=== PATIENT | male | born 1985 | race African-American/Black ===

== ENCOUNTER 2023-04-12 22:28 | Emergency (ER) | payer MEDICAID, OTHER, SELFPAY ==
--- NOTE | 2023-04-12 | ECG_ITS ---
Test Reason : CHEST PAIN Blood Pressure : / mmHG Vent. Rate : 071 BPM Atrial Rate : 071 BPM P-R Int : 184 ms QRS Dur : 096 ms QT Int : 376 ms P-R-T Axes : 052 011 018 degrees QTc Int : 408 ms Normal sinus rhythm Normal ECG No previous ECGs available Referred By: Generic ED Physician Electronically Signed By:HEIDI TAYLOR MD
--- NOTE | ~2023-04-12 | XR_ITS ---
EXAMINATION: XR CHEST CLINICAL INFORMATION: Chest pain. COMPARISON: None available. TECHNIQUE: PA view of the chest was obtained. FINDINGS: Low lung volumes with mild bronchovascular crowding. No focal airspace opacity, pleural effusion or pneumothorax. Normal appearance of the cardiomediastinal silhouette. No acute osseous findings. Visualized upper abdomen is within normal limits. XR/XR chest 1V IMPRESSION: Low lung volumes with bronchovascular crowding. No focal airspace opacity. No pleural effusion or pneumothorax.
[2023-04-12 22:45] VITALS: BP 136/84; PULSE 74; RESP 16; TEMP 36.7; O2SAT 99; BMI 40.8
[2023-04-12 22:48] LABS: MANUAL DIFF FLAG NO
[2023-04-12 22:49] LABS: Basophils Percent Auto 0.4 % (0-2); Eosinophils Absolute Auto 0.6 X10*3/uL (0.0-0.4); Eosinophils Percent Auto 5.9 % (0-4); Hematocrit 38.9 % (42.0-52.0); Hemoglobin 12.5 g/dl (14.0-18.0); Imm Gran Abs Auto 0.02 X10*3/uL (0.00-0.03); Imm Gran Pct Auto 0.2 % (0.0-0.4); Lymphocytes Absolute Auto 2.9 X10*3/uL (1.2-4.9); Mean Corpuscular HGB Conc 32.1 g/dl (31.0-36.0); Mean Corpuscular Hemoglobin 25.1 pg (27.0-33.0); Mean Platelet Volume 10.5 fL (9.4-12.4); Monocytes Absolute Auto 0.6 X10*3/uL (0.1-1.2); Monocytes Percent Auto 5.9 % (2-11); Neutrophils Absolute Auto 5.9 x10*3/uL (2.0-8.3); Neutrophils Percent Auto 58.6 % (45-73); Platelet Count 238 X10*3/uL (160-400); Red Blood Count 4.99 X10*6/uL (4.60-5.80)
[2023-04-12 23:04] LABS: Alanine Aminotransferase 16 U/L (0-40); Albumin Level 4.2 g/dL (3.5-5.0); Alkaline Phosphatase 77 U/L (39-117); Anion Gap 12 (12-20); Aspartate Amino Transferase 16 U/L (5-37); Bilirubin Total 0.2 mg/dL (0.0-1.0); Blood Urea Nitrogen 15 mg/dL (9-16); Calcium 9.1 mg/dL (8.4-10.2); Carbon Dioxide 25 mmol/L (22-29); Chloride 108 mmol/L (96-108); Creatinine Clr Calc Pharmacy 152.7; Estimated Glomerular Filt Rate > 60; Glucose Random 170 mg/dL (60-115); Potassium 3.7 mmol/L (3.3-5.1); Sodium 141 mmol/L (135-145); Total Protein 7.5 g/dL (6.5-8.0)
[2023-04-12 23:12] LABS: Troponin-I High Sensitivity < 2.7 ng/L (<3.5-35.0)
--- NOTE | 2023-04-13 00:40 | ED.CHESTPAIN ---
HPI - Chest Pain General Chief Complaint: Chest Pain Stated Complaint: chest pain Time Seen by Provider: 04/12/23 23:26 History of Present Illness HPI narrative: patient is a 37-year-old male presents today with having chest pain that is pinpoint it has been steady for the last 3 days not associated with shortness of breath no diaphoresis no history of blood clots in the past. No traveling history. Patient denies any trauma. No history of puncture lungs. Patient from home. Has a history of hypertension. No history of high cholesterol. No history of [place]. No history of diabetes. Related Data Allergies Allergy/AdvReac Type Severity Reaction Status Date / Time No Known Allergies Allergy Verified 04/12/23 22:45 Review of Systems Review of Systems: positive chest pain Yes all other systems are reviewed and are negative PMFSH Past Medical History Attestation statement: The following information was validated with the patient. Social History Social History Advance Directives: No Advance Directives Information Provided: No Physical Exam Vital Signs: Vital Signs: Last Vital Signs Temp 98.0 F 04/12/23 22:45 Pulse 74 04/12/23 22:45 Resp 16 04/12/23 22:45 BP 136/84 04/12/23 22:45 Pulse Ox 99 04/12/23 22:45 O2 Del Method Room Air 04/12/23 22:45 BMI result Body Mass Index 40.8 Appearance: Alert. Oriented X3. No acute distress. Eyes: Pupils equal, round and reactive to light. ENT: Pharynx normal. Neck: Normal inspection. Neck supple. No lymph nodes noted. No crepitus CVS: Normal heart rate and rhythm. Pulses normal. Normal S1 and S2 Respiratory: No respiratory distress. Breath sounds normal. No Wheezing. No rales Abdomen: Soft and nontender. No rigidity. No distention. good BS x4 Skin: Skin warm and dry. Normal skin color. Normal skin turgor. Extremities: No lower extremity edema. Neurovascular intact to all extremities. No Lacerations. No Rash Neuro: Oriented X 3. No motor deficit. No sensory deficit. Moving all extermities. No slurred speech Medical Decision Making Medical Decision Making MDM Narrative: My interpretation of patient's EKG showed a sinus rhythm heart rate is 70 OH QRS QTC within normal limits is no acute ST segment elevation. Patient history not consistent with ACS. Troponin is negative. He is 37 years old. He is not overweight. Question family history. his heart score still less than 3. Chest x-ray negative. There is no evidence of pneumonia pneumothorax. Patient is in stable condition. Will discharge home. Differential Diagnosis Differential Diagnoses: The differential diagnosis associated with the presentation includes Admission/Observation Consider admission but patient's heart score less than 3 well appearing joint decision was made to discharge patient Lab Data MDM Lab Attestation statement: I reviewed the patient's lab results. 04/12/23 22:44 04/12/23 22:44 Labs: Lab Results 04/12/23 Range/Units 22:44 WBC 10.0 (4.8-10.8) X10*3/uL RBC 4.99 (4.60-5.80) X10*6/uL Hgb 12.5 L (14.0-18.0) g/dl Hct 38.9 L (42.0-52.0) % MCV 78.0 L (80.0-98.0) fL MCH 25.1 L (27.0-33.0) pg MCHC 32.1 (31.0-36.0) g/dl RDW 14.0 (11.0-16.0) % Plt Count 238 (160-400) X10*3/uL MPV 10.5 (9.4-12.4) fL Immature Gran % (Auto) 0.2 (0.0-0.4) % Neut % (Auto) 58.6 (45-73) % Lymph % (Auto) 29.0 (20-40) % [place] % (Auto) 5.9 (2-11) % Eos % (Auto) 5.9 H (0-4) % Baso % (Auto) 0.4 (0-2) % Lymph # (Auto) 2.9 (1.2-4.9) X10*3/uL [place] # (Auto) 0.6 (0.1-1.2) X10*3/uL Eos # (Auto) 0.6 H (0.0-0.4) X10*3/uL Baso # (Auto) 0.0 (0.0-0.2) X10*3/uL Abs Immat Gran (auto) 0.02 (0.00-0.03) X10*3/uL Absolute Neuts (auto) 5.9 (2.0-8.3) x10*3/uL Absolute Nucleated RBC 0.000 (0.0-0.012) X10*3/uL Nucleated RBC % (auto) 0.0 (0.0-0.2) /100WBC Sodium 141 (135-145) mmol/L Potassium 3.7 (3.3-5.1) mmol/L Chloride 108 (96-108) mmol/L Carbon Dioxide 25 (22-29) mmol/L Anion Gap 12 (12-20) BUN 15 (9-16) mg/dL Creatinine 0.85 (0.5-1.4) mg/dL Estim Creat Clear Calc 152.7 Estimated GFR > 60 Random Glucose 170 H (60-115) mg/dL Calcium 9.1 (8.4-10.2) mg/dL Total Bilirubin 0.2 (0.0-1.0) mg/dL AST 16 (5-37) U/L ALT 16 (0-40) U/L Alkaline Phosphatase 77 (39-117) U/L Troponin I High Sens < 2.7 (<3.5-35.0) ng/L Total Protein 7.5 (6.5-8.0) g/dL Albumin 4.2 (3.5-5.0) g/dL Independent Interpretation I performed an independent interpretation of an: EKG ( Sinus heart rate is 80 OH QRS QTC within normal limits there is no acute ST segment elevation.) and Plain X-Ray ( Chest x-ray showed no pneumonia no pneumothorax) Radiology Impression Discussion of test interpretation with radiology: I have reviewed the radiologist's reading. External Record Review fluid no significant records here at [facility]. Discharge Plan Discharge Clinical Impression: Chest pain Patient Disposition: Home, Self-Care Instructions: Chest Pain (ED) Referrals: Sergey Francisco MD [Physician] - 04/16/23 Print Language: Lao
[2023-04-13 00:44] VITALS: BP 116/79; PULSE 72; RESP 16; O2SAT 99
== END 2023-04-13 01:25 | disposition home or self-care (01) ==
PROVIDERS: Emergency Provider Emergency Medicine Emergency Medical Services
DX: R07.9 Chest pain, unspecified (principal)
CPT/HCPCS: 36415; 71045; 80053; 84484; 85025; 93005; 99283; 99285

== ENCOUNTER 2023-08-20 11:33 | Outpatient (REF) | payer MEDICAID, OTHER, SELFPAY ==
--- NOTE | ~2023-08-20 | XR_ITS ---
EXAMINATION: XR CHEST CLINICAL INFORMATION: Cough and hemoptysis with decreased breath sounds COMPARISON: 04/12/2023 TECHNIQUE: 2 views of the chest were obtained. FINDINGS: No significant abnormality is noted involving the heart, lungs, mediastinum, bony thorax or soft tissues. XR/XR chest 2V IMPRESSION: Unremarkable examination.
== END 2023-08-20 11:34 | disposition home or self-care (01) ==
LOC: HO.HHCX 11:33
PROVIDERS: Visit Provider Emergency Medicine
DX: R05.9 Cough, unspecified (principal)
CPT/HCPCS: 71046

== ENCOUNTER 2023-11-13 04:23 | Emergency (ER) | payer MEDICAID, OTHER, SELFPAY ==
--- NOTE | 2023-11-13 | ECG_ITS ---
Test Reason : CP Blood Pressure : / mmHG Vent. Rate : 067 BPM Atrial Rate : 067 BPM P-R Int : 188 ms QRS Dur : 094 ms QT Int : 358 ms P-R-T Axes : 050 004 015 degrees QTc Int : 378 ms Normal sinus rhythm Normal EKG When compared with ECG of 12-APR-2023 22:33, No significant change was found Referred By: Generic ED Physician Electronically Signed By:CORBY MCKEON
--- NOTE | ~2023-11-13 | XR_ITS ---
EXAMINATION: XR SHOULDER, LEFT CLINICAL INFORMATION: Left shoulder pain with movement COMPARISON: None available. TECHNIQUE: Two views of the left shoulder. FINDINGS: No evidence for acute fracture or dislocation. Humeral head and neck appear grossly intact. No scapular disruption. No appreciable abnormal soft tissue calcifications. The clavicle appears to be intact. XR/XR shoulder LT min 2V IMPRESSION: No evidence for acute process on the given examination.
--- NOTE | ~2023-11-13 | XR_ITS ---
EXAMINATION: XR CHEST CLINICAL INFORMATION: Pain. COMPARISON: 08/20/2023. TECHNIQUE: 2 views of the chest were obtained. FINDINGS: No significant abnormality is noted involving the heart, lungs, mediastinum, bony thorax or soft tissues. XR/XR chest 2V IMPRESSION: Unremarkable examination.
[2023-11-13 04:25] VITALS: BP 143/93; PULSE 73; RESP 16; TEMP 36.9; O2SAT 97; BMI 40.8
[2023-11-13 04:58] LABS: Mean Corpuscular HGB Conc 33.3 g/dl (31.0-36.0); Mean Corpuscular Hemoglobin 25.9 pg (27.0-33.0); Mean Corpuscular Volume 77.7 fL (80.0-98.0); Mean Platelet Volume 10.5 fL (9.4-12.4); Platelet Count 224 X10*3/uL (160-400); Red Blood Count 5.02 X10*6/uL (4.60-5.80); Red Cell Distribution Width 14.7 % (11.0-16.0)
[2023-11-13 05:09] LABS: INTERNATIONAL NORM RATIO 0.9 (0.9-1.1); Prothrombin Time 10.6 SEC (11.1-13.3)
[2023-11-13 05:14] LABS: Alanine Aminotransferase 20 U/L (0-40); Albumin Level 4.1 g/dL (3.5-5.0); Alkaline Phosphatase 65 U/L (39-117); Anion Gap 15 (12-20); Aspartate Amino Transferase 26 U/L (5-37); Bilirubin Total 0.2 mg/dL (0.0-1.0); Blood Urea Nitrogen 15 mg/dL (9-16); Calcium 9.1 mg/dL (8.4-10.2); Carbon Dioxide 20 mmol/L (22-29); Chloride 108 mmol/L (96-108); Creatinine Clr Calc Pharmacy 154.8; Estimated Glomerular Filt Rate > 60; Glucose Random 165 mg/dL (60-115); Potassium 4.3 mmol/L (3.3-5.1); Sodium 139 mmol/L (135-145); Total Protein 7.7 g/dL (6.5-8.0)
[2023-11-13 05:21] LABS: Troponin-I High Sensitivity < 2.7 ng/L (<3.5-35.0)
[2023-11-13 05:27] VITALS: BP 147/84; PULSE 68; RESP 16; TEMP 36.9; O2SAT 98
--- NOTE | 2023-11-13 07:01 | ED.CHESTPAIN ---
HPI - Chest Pain General Chief Complaint: Chest Pain Stated Complaint: Chest pain Time Seen by Provider: 11/13/23 06:33 Source: patient, RN notes reviewed and old records reviewed Mode of arrival: ambulatory Limitations: no limitations History of Present Illness ED Provider: Doroteo Morfin PA-C HPI narrative: 38 yo Malawian speaking male with history of HTN presents to the ER for evaluation of left sided chest pain, left sided upper back pain and left shoulder pain that started yesterday. Patient states the pain started when he was doing nothing special, it has gotten worse and is significantly exacerbated with movement of the left upper extremity and shoulder. It is worse when he takes a deep breath and tries to sit up. He has not short of breath. He denies any known injury. 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 Denies any heavy lifting. No numbness or tingling in the arm. He has not taken any medications yet for the pain MD complaint: chest pain and other (Left shoulder pain) Onset (ago): day(s) (1) Timing of current episode: constant Prior episodes: No Onset: during rest Pain location: left chest Pain radiation: back and left shoulder Severity: severe Quality: aching and dull Relieving factors: rest Exacerbating factors: inspiration, palpation and movement Treatment prior to arrival: none Risk Factors Coronary artery disease risk factors: hyperlipidemia Related Data Previous Rx's ?Medication ?Instructions ?Recorded cyclobenzaprine 10 mg tablet 10 mg PO TID PRN muscle spasm #14 11/13/23 tabs ibuprofen 600 mg tablet 600 mg PO Q8H PRN pain #20 tabs 11/13/23 lidocaine 5 % topical patch 1 patch topical DAILY #15 ea 11/13/23 Allergies Allergy/AdvReac Type Severity Reaction Status Date / Time No Known Allergies Allergy Verified 11/13/23 04:37 Review of Systems Review of Systems: Yes all other systems are reviewed and are negative [facility] Social History Social History (System 08/22/23 @ 13:01 by Kateryna Irving) Alcohol intake: current Alcohol intake frequency: a few times a week Alcohol type: beer Smoked in Last 30 Days: No Use of substances other than those prescribed or required for medical reasons: No Advance Directives: No Advance Directives Information Provided: Yes Do you have a plan to hurt others: No Plan Physical Exam Vital Signs: Vital Signs: Last Vital Signs Temp 97.4 F 11/13/23 12:09 Pulse 60 11/13/23 12:09 Resp 15 11/13/23 12:09 BP 134/68 11/13/23 12:09 Pulse Ox 98 11/13/23 12:09 O2 Del Method Room Air 11/13/23 12:09 BMI result Body Mass Index 40.8 Appearance: Alert. Oriented X3. Appears uncomfortable Head: normocephalic, atraumatic. Eyes: Pupils equal, round and reactive to light. ENT: Pharynx normal. No tonsillar swelling or exudate. Neck/back: Normal inspection. Neck supple. Left upper back soft tissue tenderness into the left lateral neck. CVS: Normal heart rate and rhythm. Pulses normal. Respiratory: No respiratory distress. Breath sounds normal. Abdomen: Soft and nontender. +BS x4 Skin: Skin warm and dry. Normal skin color. Normal skin turgor. No rashes. Extremities: No lower extremity edema. No joint swelling. Tenderness of the entire left shoulder with limited abduction laterally and anteriorly, positive empty can test. Positive tenderness over the left scapula with palpable muscle spasm. Normal range of motion of the left shoulder and wrist. Neurovascularly intact distally Neuro/psych: Oriented X 3. No motor deficit. No sensory deficit. CN II-XII intact. Normal speech and cognition. Medications Administered Discontinued Medications Generic Name Dose Route Start Last Admin Trade Name Freq PRN Reason Stop Dose Admin Acetaminophen 975 mg 11/13/23 06:59 11/13/23 07:09 Acetaminophen 325 Mg Tablet PO 11/13/23 07:00 975 mg ONCE ONE Administration Ketorolac Tromethamine 30 mg 11/13/23 06:59 11/13/23 07:11 Ketorolac Tromethamine 30 Mg/Ml Vial IM 11/13/23 07:00 30 mg ONCE ONE Administration Oxycodone HCl 5 mg 11/13/23 06:59 11/13/23 07:10 Oxycodone Hcl Immed Release 5 Mg Tablet PO 11/13/23 07:00 5 mg ONCE ONE Administration Medical Decision Making Medical Decision Making MDM Narrative: 38 yo [place]ian speaking male w/ hx HTN presenting with left shoulder, chest and back pain since yesterday. Pain is significantly worse with movement and palpation. Low suspicion for cardiac etiology. Seems musculoskeletal in nature given the tenderness on examination. He was treated with Toradol, oxycodone, Tylenol with significant improvement in his pain. He could range his left arm much better and reports significant relief. His cardiac workup was unremarkable. X-ray of the left shoulder was still pending at the time of discharge. Comfortable discharge home with treatment for musculoskeletal pain. Encouraged follow-up with PCP. Stable for discharge home Differential Diagnosis Differential Diagnoses: The differential diagnosis associated with the presentation includes Rotator cuff injury, arthritis, bursitis, shoulder strain/sprain, muscle spasm, low suspicion for ACS, dissection Admission/Observation Consideration of admission/observation: Escalation of care including admission/observation considered Lab Data MDM Lab Attestation statement: I reviewed the patient's lab results. Mild anemia, negative troponin, mild hyper glycemia without anion gap 11/13/23 04:52 11/13/23 04:52 Labs: Lab Results 11/13/23 Range/Units 04:52 WBC 10.0 (4.8-10.8) X10*3/uL RBC 5.02 (4.60-5.80) X10*6/uL Hgb 13.0 L (14.0-18.0) g/dl Hct 39.0 L (42.0-52.0) % MCV 77.7 L (80.0-98.0) fL MCH 25.9 L (27.0-33.0) pg MCHC 33.3 (31.0-36.0) g/dl RDW 14.7 (11.0-16.0) % Plt Count 224 (160-400) X10*3/uL MPV 10.5 (9.4-12.4) fL Absolute Nucleated RBC 0.000 (0.0-0.012) X10*3/uL Nucleated RBC % (auto) 0.0 (0.0-0.2) /100WBC PT 10.6 L (11.1-13.3) SEC INR 0.9 (0.9-1.1) Sodium 139 (135-145) mmol/L Potassium 4.3 (3.3-5.1) mmol/L Chloride 108 (96-108) mmol/L Carbon Dioxide 20 L (22-29) mmol/L Anion Gap 15 (12-20) BUN 15 (9-16) mg/dL Creatinine 0.83 (0.5-1.4) mg/dL Estim Creat Clear Calc 154.8 Estimated GFR > 60 Random Glucose 165 H (60-115) mg/dL Calcium 9.1 (8.4-10.2) mg/dL Total Bilirubin 0.2 (0.0-1.0) mg/dL AST 26 (5-37) U/L ALT 20 (0-40) U/L Alkaline Phosphatase 65 (39-117) U/L Troponin I High Sens < 2.7 (<3.5-35.0) ng/L Total Protein 7.7 (6.5-8.0) g/dL Albumin 4.1 (3.5-5.0) g/dL Independent Interpretation I performed an independent interpretation of an: EKG and Plain X-Ray Interpretation: EKG with normal sinus rhythm, ventricular rate 67 beats per minute, normal MA interval, normal QTC, no ST segment elevations or depressions. No change from 04/23/2023 Chest x-ray is clear with no focal abnormality, no pneumothorax Radiology Impression Discussion of test interpretation with radiology: I have reviewed the radiologist's reading. Radiologist Impression: EXAMINATION: XR CHEST CLINICAL INFORMATION: Pain. COMPARISON: 08/20/2023. TECHNIQUE: 2 views of the chest were obtained. FINDINGS: No significant abnormality is noted involving the heart, lungs, mediastinum, bony thorax or soft tissues. XR/XR chest 2V IMPRESSION: Unremarkable examination. External Record Review External record reviewed: Prior outpatient labs Prescription Management I considered prescription management with: Pain Medication Chronic Conditions Patient?s care impacted by: Hypertension Critical Care Time Critical Care Time Critical Care Time: No Discharge Plan Discharge Clinical Impression: Acute pain of left shoulder Patient Disposition: Home, Self-Care Instructions: Shoulder Pain (ED) Additional Instructions: Your cardiac workup today was normal. Your pain is likely muscular. Take the prescribed medications as directed. Follow-up with your doctor. If you develop new or worsening symptoms call 911 or come back to the ER for further evaluation. Prescriptions: New cyclobenzaprine 10 mg tablet 10 mg PO TID PRN (Reason: muscle spasm) Qty: 14 0RF ibuprofen 600 mg tablet 600 mg PO Q8H PRN (Reason: pain) Qty: 20 0RF lidocaine 5 % adhesive patch,medicated 1 patch topical DAILY Qty: 15 0RF Rx Instructions: leave on most painful area for up to 12 hrs Stand Alone Forms: Work/School Release Interventions: ED Discharge Assessment Last Done: 11/13/23 12:09 Discharge Date/Time: 11/13/23 12:16 Print Language: Malawian
[2023-11-13] MEDS: Acetaminophen 325 MG TABLET 975 MG PO (07:09)
[2023-11-13] MEDS: oxyCODONE HCl Immed Release 5 MG TABLET PO (07:10)
[2023-11-13] MEDS: Ketorolac Tromethamine 30 MG/ML VIAL IM (07:11)
[2023-11-13 08:30] VITALS: BP 127/70; PULSE 63; RESP 15; TEMP 36.9; O2SAT 96
--- NOTE | 2023-11-13 09:07 | PC.NURSE ---
Pt reports feeling much better after pain medications, feels better overall.
[2023-11-13 11:54] VITALS: BP 134/68; PULSE 60; RESP 15; TEMP 36.3; O2SAT 98
[2023-11-13 12:09] VITALS: BP 134/68; PULSE 60; RESP 15; TEMP 36.3; O2SAT 98
== END 2023-11-13 12:16 | disposition home or self-care (01) ==
PROVIDERS: Emergency Provider Emergency Medicine
DX: R07.89 Other chest pain (principal); M25.512 Pain in left shoulder; Z79.899 Other long term (current) drug therapy
CPT/HCPCS: 36415; 71046; 73030; 80053; 84484; 85027; 85610; 93005; 96372; 99284; 99285; J1885

== ENCOUNTER → 2023-11-13 04:25 | Outpatient (BNV) | payer MEDICAID, SELFPAY | PROVIDERS: Emergency Provider Emergency Medicine; Visit Provider Internal Medicine | DX: R07.9 Chest pain, unspecified (principal) | CPT/HCPCS: 93010 ==

== ENCOUNTER 2024-02-13 09:29 | Outpatient (REF) | payer SELFPAY ==
[2024-02-13 11:28] LABS: MANUAL DIFF FLAG NO
[2024-02-13 11:40] LABS: Basophils Percent Auto 0.5 % (0-2); Eosinophils Absolute Auto 0.4 X10*3/uL (0.0-0.4); Eosinophils Percent Auto 5.1 % (0-4); Hematocrit 42.2 % (42.0-52.0); Hemoglobin 13.4 g/dl (14.0-18.0); Imm Gran Abs Auto 0.03 X10*3/uL (0.00-0.03); Imm Gran Pct Auto 0.4 % (0.0-0.4); Lymphocytes Absolute Auto 2.6 X10*3/uL (1.2-4.9); Lymphocytes Percent Auto 34.9 % (20-40); Mean Corpuscular HGB Conc 31.8 g/dl (31.0-36.0); Mean Corpuscular Hemoglobin 25.6 pg (27.0-33.0); Mean Corpuscular Volume 80.7 fL (80.0-98.0); Mean Platelet Volume 11.6 fL (9.4-12.4); Monocytes Absolute Auto 0.5 X10*3/uL (0.1-1.2); Monocytes Percent Auto 6.7 % (2-11); Neutrophils Absolute Auto 3.9 x10*3/uL (2.0-8.3); Neutrophils Percent Auto 52.4 % (45-73); Platelet Count 238 X10*3/uL (160-400); Red Blood Count 5.23 X10*6/uL (4.60-5.80); Red Cell Distribution Width 13.9 % (11.0-16.0); White Blood Count 7.4 X10*3/uL (4.8-10.8)
[2024-02-13 12:00] LABS: Alanine Aminotransferase 23 U/L (0-40); Albumin Level 4.4 g/dL (3.5-5.0); Alkaline Phosphatase 66 U/L (39-117); Anion Gap 14 (12-20); Aspartate Amino Transferase 18 U/L (5-37); Bilirubin Total 0.4 mg/dL (0.0-1.0); Blood Urea Nitrogen 12 mg/dL (9-16); Calcium 9.7 mg/dL (8.4-10.2); Carbon Dioxide 23 mmol/L (22-29); Chloride 106 mmol/L (96-108); Cholesterol 208 mg/dL (<200); Estimated Glomerular Filt Rate > 60; Glucose Random 155 mg/dL (60-115); HDL Cholesterol 46 mg/dL (>40); Iron 69 mcg/dL (45-160); LDL Cholesterol Calculated 131 mg/dL (<100); Percent Iron Saturation 20 % (15-50); Potassium 4.3 mmol/L (3.3-5.1); Sodium 139 mmol/L (135-145); Total Iron Binding Capacity 341 mcg/dL (228-428); Total Protein 7.6 g/dL (6.5-8.0); Triglycerides 155 mg/dL (<150); Unsaturated Iron Binding 272 ug/dL
== END 2024-02-13 09:30 | disposition home or self-care (01) ==
LOC: HO.HHCL 09:29
PROVIDERS: PCP General Practice; Visit Provider Emergency Medicine
DX: R05.9 Cough, unspecified (principal); J98.9 Respiratory disorder, unspecified; I10 Essential (primary) hypertension
CPT/HCPCS: 36415; 80053; 80061; 83540; 85025

== ENCOUNTER 2024-05-13 22:52 | Emergency (ER) | payer MEDICAID, OTHER, SELFPAY ==
--- NOTE | ~2024-05-13 | XR_ITS ---
EXAMINATION: XR HAND/WRIST, RIGHT CLINICAL INFORMATION: fall, pain COMPARISON: None available. TECHNIQUE: PA, lateral, and oblique views of the right hand and wrist. FINDINGS: An oblique longitudinal intra-articular fracture of the base of the fourth metacarpal is present. Adjacent soft tissue inflammatory changes are noted. A 1 mm high density punctate focus is noted along the radial aspect of the dorsal distal radius. Normal bone mineralization. No soft tissue emphysematous changes. XR/XR hand wrist RT IMPRESSION: 1. Oblique longitudinal intra-articular fracture of the base of the fourth metacarpal. 2. Punctate 1 mm high density focus along the radial aspect of the dorsal distal radius which may represent an embedded foreign body of indeterminate chronicity. Electronically signed by: Jono Mason MD 05/14/2024 02:28 AM [facility]
[2024-05-13 23:00] VITALS: BP 169/105; PULSE 75; RESP 20; TEMP 37.2; O2SAT 98; BMI 33.4
--- NOTE | 2024-05-13 23:32 | ED_ITS ---
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 No other injuries. Has pain on wrist and 5th metatarsal. He reports it hurts to move the hand and wrist. 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) Pain Consistency: constant Location: right and other (hand/wrist) Quality: aching Radiation: none Relieving factors: immobilization Exacerbating factors: range of motion and palpation Associated symptoms: denies other symptoms Context: other (fall) Related Data Previous Rx's ?Medication ?Instructions ?Recorded cyclobenzaprine 10 mg tablet 10 mg PO TID PRN muscle spasm #14 11/13/23 tabs ibuprofen 600 mg tablet 600 mg PO Q8H PRN pain #20 tabs 11/13/23 lidocaine 5 % topical patch 1 patch topical DAILY #15 ea 11/13/23 hydrocodone 5 mg-acetaminophen 325 1 tab PO Q6H PRN pain #10 tabs 05/14/24 mg tablet Allergies Allergy/AdvReac Type Severity Reaction Status Date / Time No Known Allergies Allergy Verified 05/13/24 23:00 Review of Systems Review of Systems: Constitutional : No Fever, No Chills ENT/Mouth : No Ear Pain, No Hoarseness, No sore throat Eyes: No Eye Pain, No Swelling, No Redness, No Foreign Body Cardiovascular : No Chest Pain, No SOB Respiratory : No Cough, No Dyspnea Gastrointestinal : No Nausea, No Vomiting, No Diarrhea, No abdominal Pain Genitourinary : No Dysuria, No Hematuria Musculoskeletal : positive joint pain, No Myalgias, pos Joint Swelling Skin : No Skin lacerations, No rash Neuro : No Weakness, No Numbness, No Loss of Consciousness All other systems reviewed and are negative [facility] Past Medical History Attestation statement: The following information was validated with the patient. Source: old records reviewed Medical History (Updated 05/14/24 @ 01:33 by Keya Lanier DO) No pertinent past medical history Social History Social History (Updated 05/13/24 @ 23:50 by Keya Lanier DO) Alcohol intake: current Alcohol intake frequency: a few times a week Alcohol type: beer Patient Tobacco Use Status: Tobacco use Unknown Advance Directives: No Advance Directives Information Provided: Yes Physical Exam Vital Signs: Vital Signs: Last Vital Signs Temp 98.6 F 05/14/24 02:13 Pulse 67 05/14/24 02:13 Resp 16 05/14/24 02:13 BP 158/87 H 05/14/24 02:13 Pulse Ox 97 05/14/24 02:13 O2 Del Method Room Air 05/14/24 02:13 BMI result Body Mass Index 33.4 Appearance: Alert. Oriented X3. No acute distress. Eyes: Pupils equal, round and reactive to light. ENT: Pharynx normal. atraumatic Neck: Normal inspection. Neck supple. CVS: Pulses normal. Respiratory: No respiratory distress. Abdomen: atraumatic Skin: Skin warm and dry. Normal skin color. Normal skin turgor. Extremities: R hand along 5th metacarpal distal NV intact, BCR in all digits, c an flex and extend but hurts, swelling mild along wrist Neuro: Oriented X 3. No motor deficit. No sensory deficit. Medications Administered Discontinued Medications Generic Name Dose Route Start Last Admin Trade Name Freq PRN Reason Stop Dose Admin Ibuprofen 600 mg 05/14/24 02:05 05/14/24 02:10 Ibuprofen 600 Mg Tablet PO 05/14/24 02:06 600 mg ONCE ONE Administration Tramadol HCl 50 mg 05/14/24 00:31 05/14/24 00:53 Tramadol Hcl 50 Mg Tablet PO 05/14/24 00:32 50 mg ONCE ONE Administration Medical Decision Making Medical Decision Making MDM Narrative: 38 yo male R hand dominant at this time fall on R wrist has pain on along hand and wrist - will obtain xrays for fracture NV intact Differential Diagnosis Differential Diagnoses: The differential diagnosis associated with the presentation includes fracture vs sprain Independent Interpretation I performed an independent interpretation of an: Plain X-Ray (+ 4th MC fx) Radiology Impression Discussion of test interpretation with radiology: I have reviewed the radiologist's reading. Prescription Management I considered prescription management with: Pain Medication Procedures Orthopedic Splinting/Casting Injury #1: Side: right Upper Extremity Injury Location: wrist and hand Upper Extremity Immobilizer: ulnar gutter Additional Comments: NV intact Discharge Plan Discharge Clinical Impression: Fracture of metacarpal Qualifiers: Encounter type: initial encounter Metacarpal bone: fourth Fracture type: closed Metacarpal location: base Fracture alignment: displaced Laterality: right Qualified Code(s): S62.314A - Displaced fracture of base of fourth metacarpal bone, right hand, initial encounter for closed fracture Patient Disposition: Home, Self-Care Instructions: Hand Fracture (ED) Additional Instructions: wear splint until cleared by orthopedics return for numb cold blue hand or any other concerns do not get splint wet call orthopedics tomorrow to follow up Prescriptions: New hydrocodone-acetaminophen 5-325 mg tablet 1 tab PO Q6H PRN (Reason: pain) Qty: 10 0RF Rx Instructions: partial fill okay; Partial Fill upon patient request. No Action cyclobenzaprine 10 mg tablet 10 mg PO TID PRN (Reason: muscle spasm) Qty: 14 0RF ibuprofen 600 mg tablet 600 mg PO Q8H PRN (Reason: pain) Qty: 20 0RF lidocaine 5 % adhesive patch,medicated 1 patch topical DAILY Qty: 15 0RF Rx Instructions: leave on most painful area for up to 12 hrs Referrals: [facility] [place] [facility] [Provider Group] (call to schedule orthopedics) Stand Alone Forms: Work/School Release Interventions: ED Discharge Assessment Last Done: 05/14/24 02:13 Discharge Date/Time: 05/14/24 02:13 Print Language: [place]
[2024-05-14 00:31] VITALS: BP 158/87; PULSE 67; RESP 16; TEMP 37; O2SAT 97
[2024-05-14] MEDS: traMADoL HCL 50 MG TABLET PO (00:53)
--- NOTE | 2024-05-14 00:58 | PC.NURSE ---
Xray taken, medicated per aug. pt awaiting xray results.
[2024-05-14] MEDS: Ibuprofen 600 MG TABLET PO (02:10)
[2024-05-14 02:13] VITALS: BP 158/87; PULSE 67; RESP 16; TEMP 37; O2SAT 97
== END 2024-05-14 02:13 | disposition home or self-care (01) ==
PROVIDERS: Emergency Provider Emergency Medicine; PCP General Practice
DX: S62.314A Displaced fracture of base of fourth metacarpal bone, right hand, initial encounter for closed fracture (principal); W19.XXXA Unspecified fall, initial encounter; Y93.9 Activity, unspecified; Y92.9 Unspecified place or not applicable; Y99.9 Unspecified external cause status; M25.531 Pain in right wrist
CPT/HCPCS: 73110; 73130; 99283; 99284

== ENCOUNTER 2024-07-03 12:19 | Outpatient (REF) | payer MEDICAID, OTHER, SELFPAY ==
--- NOTE | ~2024-07-03 | XR_ITS ---
EXAMINATION: XR HAND, RIGHT CLINICAL INFORMATION: PAIN COMPARISON: May 14, 2024. TECHNIQUE: PA, lateral, and oblique views of the right hand. FINDINGS: Periosteal bone reaction along the proximal radial aspect of the fourth metacarpal with a persistent 3 mm gap between the fragments. No acute cortical disruption or gross malalignment. 1 mm well-corticated radiopaque foreign body at the radioscaphoid joint. 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 Probable foreign body, radial scaphoid joint Electronically signed by: Jamey Dahl MD 07/03/2024 12:52 PM EST
--- OUTSIDE RECORDS SUMMARY | 2024-07-03 16:10 | XMS_ITS | Encounter Summary ---
Author Organization [employer] Address [address] [place] [address] Care Team Providers Care Internship Name Role Phone Mita Eddy MD Primary Care Provider [phone] Encounter Details Date Type Department Care Team (Latest Contact Info) Description 07/03/2024 Travel Social History Tobacco Use Types Packs/Day Years Used Date Smoking Tobacco: Never Passive Smoke Exposure: Never Smokeless Tobacco: Never Alcohol Use Standard Drinks/Week Comments Not Currently 0 (1 standard drink = 0.6 oz pur e alcohol) rarely Depression Answer Date Recorded Patient Health Questionnaire-9 Score 0 03/25/2024 Patient Health Questionnaire-9 Score 0 03/25/2024 Last PHQ-9: Questionnaire Data Not on file 1 Housing Stability Answer Date Recorded What is your housing situation today? I have housing today, but I am worried about losing housing in the future 03/25/[address] you li ve. Do you have problems with any of the following? None of the above 03/25/2024 Food Insecurity Answer Date Recorded Within the past 12 months, y ou worried that your food would run out before you got money to buy more: Sometimes True 2023 Within the past 12 months,th e food you bought just didn't last and you didn't have enough money to get more: Sometimes True 03/25/2024 Transportation Answer Date Recorded In the past 12 months, has l ack of transportation kept you from medical appts, meetings, work or from getting things needed for daily living? No 03/25/2024 Utilities Answer Date Recorded In the past 12 months, has t he electric, gas, oil or water company threatened to shut off services in your home? No 03/25/2024 Depression Answer Date Recorded Patient Health Questionnaire-2 Score 0 03/25/2024 Internet Access Answer Date Recorded Internet Access Q1 No 03/25/2024 Internet Access Q2 Not on file 03/25/2024 Sex and Gender Information Value Date Recorded Sex Assigned at Male 11/16/2023 10:54 AM EDT Legal Sex Male 3:51 PM EDT Gender Identity Male 11/16/2023 10:54 AM EDT Sexual Orientation Straight 11/16/2023 10 :54 AM EDT documented as of this encounter Plan of Treatment Not on file documented as of this encounter Visit Diagnoses Not on filedocumented in this encounter Additional Health Concerns Assessment Noted Time PHQ-9 Depression Total Score: 0 03/25/20 1:09 PM EDT documented as of this encounter Care Teams Internship Relationship Specialty Start Date End Date Mita Eddy MD [address] [place] [phone] PCP - General Family Medicine 02/08/24 documented as of this encounter
--- OUTSIDE RECORDS SUMMARY | 2024-07-03 16:10 | XMS_ITS | Encounter Summary ---
Author Organization [employer] Address [address] [place] [address] [place] [address] Care Team Providers Care Credit Professional Name Role Phone Mita Eddy MD Primary Care Provider [phone] Reason for Visit * Reason Comments Pre-visit Planning (Unable to reach for PVP screening and or LVM) Encounter Details Date Type Department Care Team ([facility] Contact Info) Description 06/24/2024 Patient Outreach [facility] [address] [place] [address] Mita Eddy MD [address] [place] [phone] Pre-visit Planning ((Unable to reach for PVP screening and or LVM)) Social History Tobacco Use Types Packs/Day Years [...] AM EDT documented as of this encounter Progress Notes * Ling Tesfaye - 06/24/2024 9:31 AM EST CC Ling placed outbound call to patient to complete pre-visit planning. No answer at this time. Patient name and were not confirmed. CC unable to leave a voice message. documented in this encounter Plan of Treatment Not on file documented as of this encounter Visit Diagnoses Not on filedocumented in this encounter Additional Health Concerns Assessment Noted Time PHQ-9 Depression Total Score: 0 03/25/20 1:09 PM EDT documented as of this encounter Care Teams Credit Professional Relationship Specialty Start Date End Date Mita Eddy MD [address] [place] [address] PCP - General Family Medicine 02/08/24 documented as of this encounter
--- OUTSIDE RECORDS SUMMARY | 2024-07-03 16:10 | XMS_ITS | Clinical Summary ---
Author Organization [employer] Address [address] [place] [address] 7 [place] [address] Care Team Providers Care Storm Sash Maker Name Role Phone Mita Eddy MD Primary Care Provider [phone] Allergies No known active allergies Medications amLODIPine (Norvasc) 5 MG tablet Take by mouth Once per day. Active cyclobenzaprine (Flexeril) 10 MG tablet Take 10 mg by mouth if needed in the morning, at noon, and at bedtime for muscle spasms. 4 Active lidocaine (Lidoderm) 5 % patch APPLY 1 PATCH TOPICALLY TO SKIN, LEAVE ON FOR 12 HOURS AND OFF FOR 12 HOURS DIRECTED 4 Active Blood Pressure Monitoring (Omron 3 Series BP Monitor) device USE TO CHECK BLOOD PRESSURE TWICE A WEEK. 4 Active amLODIPine (Norvasc) 5 MG tablet Take 1 tablet (5 mg) by mouth Once per day. 90 tablet 3 4 Active buPROPion XL (Wellbutrin XL) 150 MG 24 hr tablet Take 1 tablet (150 mg) by mouth Once per day. Para perdir de peso 90 tablet 1 4 03/25/20 25 Active acetaminophen (Tylenol) 500 MG tablet Take 2 tablets (1,000 mg) by mouth every 6 (six) hours if needed for moderate pain or fever for up to 25 doses. 40 tablet 4 Active Blood Pressure Monitoring (Blood Pressure Kit) kit 1 each by Other route 2 times daily. Check blood pressure twice a wee. Dx hypertension 1 kit 4 Active Active Problems Problem Noted Date Diagnosed Date Class 3 severe obesity with serious comorbidity and body mass index (BMI) of 40.0 to 44.9 in adult 03/25/2024 Assessment & Plan (03/25/2024 2:06 PM EDT): Start Wellbutrin for weight loss, BMI 40 and HTN If this is not helpful, will apply for PA for [employer] Encounter to establish care with new doctor 11/2023 Primary hypertension 08/20/2023 Assessment & Plan (03/25/2024 2:04 PM EDT): Maintenance: Amlodipine 5mg BMP: normal renal function Lipid Panel: LDL 131 ASCVD Risk: The 10-year ASCVD risk score (Cb BEE, et al., 2019) is: 2.2% Values used to calculate the score: Age: 38 years Sex: Male Is Non- : No Diabetic: No Tobacco smoker: No Systolic Blood Pressure: 153 mmHg Is BP treated: Yes HDL Cholesterol: 46 mg/dL Total Cholesterol: 208 mg/dL EKG: Obtain baseline at f/u - Aerobic exercise to reduce BP. Initial goal of 30 min walk 3-5x/week. Increase as tolerated. - low-sodium diet (goal: <2g/day) and heart healthy diet such as DASH to reduce BP and prevent ASCVD. - Home BP monitoring 1-2 x day with goal of <140/90. - Seek immediate medical attention for chest pain, palpitations, SOB, syncope, or sudden changes in mental status. - Do not change or discontinue current prescriptions without first consulting health care provider Assessment & Plan (02/08/2024 1:01 PM EDT): Maintenance: Amlodipine 5mg BMP: ordered today Lipid Panel: ordered today ASCVD Risk: Calculate pending updated labs EKG: Obtain baseline at f/u - Aerobic exercise to reduce BP. Initial goal of 30 min walk 3-5x/week. Increase as tolerated. - low-sodium diet (goal: <2g/day) and heart healthy diet such as DASH to reduce BP and prevent ASCVD. - Home BP monitoring 1-2 x day with goal of <140/90. - Seek immediate medical attention for chest pain, palpitations, SOB, syncope, or sudden changes in mental status. - Do not change or discontinue current prescriptions without first consulting health care provider Encounters Date Type Department Care Team Description 07/03/2024 11:30 AM EST Office Visit [facility] [address] [place] [phone] Mita Eddy MD Closed fracture of fourth metacarpal bone of right hand with delayed healing, unspecified fracture morphology, subsequent encounter (Primary Dx); Dietary counseling; Exercise counseling; Class 3 severe obesity with serious comorbidity and body mass index (BMI) of 40.0 to 44.9 in adult, unspecified obesity type ([facility]) 07/03/2024 Travel 06/24/[address] [facility] [address] [place] [address] Mita Eddy MD Pre-visit Planning ((Unable to reach for PVP screening and or LVM)) 05/19/2024 11:00 AM EST Office Visit [facility] [address] [place] [address] Roberto Goyal MD Hand fracture, right, closed, initial encounter (Primary Dx); Primary hypertension 05/13/2024 Orders Only [facility] External Provider, [facility] from Last 3 Months Social History Tobacco Use Types Packs/Day Years Used Date Smoking Tobacco: Never Passive Smoke Exposure: Never Smokeless Tobacco: Never Tobacco Cessation:Counseling Given: Not Answered Alcohol Use Standard Drinks/Week Comments Not Currently [...] Orientation Straight 11/16/2023 10 :54 AM EDT Last Filed Vital Signs Vital Sign Reading Time Taken Comments Blood Pressure 161/114 07/03/2024 11:31 AM EST Pulse 67 07/03/2024 11:31 AM EST Temperature 37.4 ??C (99.4 ??F) 07/03/2024 11:[address] Respiratory Rate 18 07/03/2024 11:31 AM EST Oxygen Saturation 100% 07/03/2024 11:31 AM EST Inhaled Oxygen Concentration - - Weight 130 kg (286 lb 12.8 oz) 07/03/2024 11:31 AM EST Height 180.3 cm (5' 11 ) 07/03/2024 11:31 AM EST Body Mass Index 40 07/03/2024 11:31 AM EST Plan of Treatment Health Maintenance Due Date Last Done Comments Dental Prophylaxis 1985 HIV Screening 1985 Family Planning (PISQ) 09/17/1998 Hepatitis C Screening 09/17/2001 DTaP/Tdap/Td Vaccines (1 - Tdap) 09/17/2002 Hepatitis B Vaccines (1 of 3 - 19+ 3-dose series) 09/17/2002 COVID-19 Vaccine (2023-2 5 season) 2024 Influenza Vaccine (#1) 2024 Dental Oral Exam 09/01/2024 03/03/2024 Dental X-Ray: Bitewings 03/04/2025 03/03/20 24, 11/16/2023 Alcohol/Substance Use Screening 03/25/2025 03/25/2024 Depression Screening 03/25/2025 03/25/2024, 03/25/2024 SDOH Screening 03/25/2025 03/25/2024 Tobacco Screening 07/03/2025 07/03/2024 Dental X-Ray: Full Mouth 03/04/2027 024, 11/16/2023 Lipid Panel 02/12/2029 02/13/2024 Zoster Vaccines (1 of 2) 09/17/2033 RSV Patients and Patients Aged 60 years or older (1 - 1-dose 75+ series) 09/17/2058 HIB Vaccines Aged Out No longer eligi ble based on patient's age to complete this topic HPV Vaccines Aged Out No longer eligi ble based on patient's age to complete this topic Hepatitis A Vaccines Aged Out No long er eligible based on patient's age to complete this topic IPV Vaccines Aged Out No longer eligi ble based on patient's age to complete this topic Meningococcal Vaccine Aged Out No jen hortensia eligible based on patient's age to complete this topic Pneumococcal Vaccine: Pediatrics (0 to 5 Years) and At-Risk Patients (6 to 49) Years) Aged Out No longer eligible b ased on patient's age to complete this topic RSV under 20 months Aged Out No longe r eligible based on patient's age to complete this topic Rotavirus Vaccines Aged Out No longer eligible based on patient's age to complete this topic Procedures Procedure Name Priority Date/Time Associated Diagnosis Comments XR HAND 3+ VIEWS RIGHT Routine 07/03/2024 12:21 PM EST Closed fracture of fourth metacarpal bone of right hand with delayed healing, unspecified fracture morphology, subsequent encounter XR HAND WRIST RT Routine 05/14/2024 12:5 0 AM EST DIAGNOSTIC - DIAGNOSTIC IMAGING - INTRAORAL - COMPREHENSIVE SERIES OF RADIOGRAPHIC IMAGES Routine 03/03/2024 9:00 AM EDT Periodontal disease Dental caries COMPREHENSIVE ORAL EVALUATION - NEW OR ESTABLISHED PATIENT Routine 03/03/2024 9:00 AM EDT Periodontal disease Dental caries LIPID PANEL, STANDARD Routine 02/13/2024 9:33 AM EDT Primary hypertension from Last 3 Months or Most Recently Relevant to Health Maintenance Results * XR Hand 3+ Views Right (07/03/2024 12:21 PM EST) Anatomical Region Laterality Modality Upper Extremities, Hand Right Radiogra phic Imaging 07/03/2024 12:2 1 PM EST Narrative 07/03/2024 12:55 PM EST ?[facility] ?[address] ?[place] [address] ?XRay Report ? Signed ? Patient: Marvin Atkinson ? MR#: [id number] ? : 1985 ?Acct:[id number] ? Age/Sex: 38 / M ?ADM Date: 07/03/24 ? Loc: HO.HHCX ? Attending Dr: Mita Eddy MD ? Ordering Physician: Mita Eddy ?? Date of Service: 07/03/24 ?? Procedure(s): XR hand RT min 3V ?? Accession Number(s): [id number] ? cc: Mita Eddy ? EXAMINATION: ?? XR HAND, RIGHT ? CLINICAL INFORMATION: ?? PAIN ? COMPARISON: ?? May 14, 2024. ? TECHNIQUE: ?? PA, lateral, and oblique views of the right hand. ? FINDINGS: ?? Periosteal bone reaction along the proximal radial aspect of the fourth ?? metacarpal with a persistent 3 mm gap between the fragments. ?? No acute cortical disruption or gross malalignment. 1 mm ?? well-corticated radiopaque foreign body at the radioscaphoid joint. ? XR/XR hand RT min 3V ?? IMPRESSION: ?? 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 ?? Probable foreign body, radial scaphoid joint ? Electronically signed by: ??Jamey Dahl MD ??07/03/2024 12:52 PM ?? EST RP ? Dictated By: ?Jamey Ghotra MD ? Signed By: ?<Electronically signed by Jamey Segovia MD in OV> ? 07/03/24 1252 ? DD/ 1221 ? TD/TT: 07/03/24 1228 ? Diesel Retrofit Designer: ? Procedure Note Donotuseinterpreter, Image - 07/03/[address] [address] XRay Report Signed Patient: Marvin Atkinson MR#: [id number] : 1985Acct:[id number] Age/Sex: 38 / MADM Date: 07/03/24 Loc: HO.HHCX Attending Dr: Mita Eddy MD Ordering Physician: Mita Eddy Date of Service: 07/03/24 Procedure(s): XR hand RT min 3V Accession Number(s): [id number] cc: Mita Eddy EXAMINATION: XR HAND, RIGHT CLINICAL INFORMATION: PAIN COMPARISON: May 14, 2024. TECHNIQUE: PA, lateral, and oblique views of the right hand. FINDINGS: Periosteal bone reaction along the proximal radial aspect of the fourth metacarpal with a persistent 3 mm gap between the fragments. No acute cortical disruption or gross malalignment. 1 mm well-corticated radiopaque foreign body at the radioscaphoid joint. 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 Probable foreign body, radial scaphoid joint Electronically signed by: Jamey Dahl MD 07/03/2024 12:52 PM EST Dictated By: Jamey Ghotra MD Signed By: <Electronically signed by Jamey Segovia MDin OV> 07/03/24 1252 DD/ 1221 TD/TT: 07/03/24 1228 Diesel Retrofit Designer: Mita Eddy MD IMG XR PROCEDURES Final Result * XR HAND WRIST RT (05/14/2024 12:50 AM EST) Anatomical Region Laterality Modality Abdomen Radiographic Tori ging 05/14/2024 12:5 0 AM EST Narrative 05/14/2024 2:31 AM EST ? [facility] ?[address] ?[place] [address] ?XRay Report ? Signed ? Patient: Nirmal Campbell,Marvin ? MR#: [id number] ? : 1985 ?Acct:[id number] ? Age/Sex: 38 / M ?ADM Date: 05/13/24 ? Loc: HO.ED ? Attending Dr: ? Ordering Physician: Keya Lanier DO ?? Date of Service: 05/14/24 ?? Procedure(s): XR hand wrist RT ?? Accession Number(s): [id number] ? cc: Keya Lanier DO; Mita Eddy ? EXAMINATION: ?? XR HAND/WRIST, RIGHT ? CLINICAL INFORMATION: ?? fall, pain ? COMPARISON: ?? None available. ? TECHNIQUE: ?? PA, lateral, and oblique views of the right hand and wrist. ? FINDINGS: ?? An oblique longitudinal intra-articular fracture of the base of the ?? fourth metacarpal is present. Adjacent soft tissue inflammatory changes ?? are noted. A 1 mm high density punctate focus is noted along the radial ?? aspect of the dorsal distal radius. ??Normal bone mineralization. No ?? soft tissue emphysematous changes. ? XR/XR hand wrist RT ?? IMPRESSION: ?? 1. ??Oblique longitudinal intra-articular fracture of the base of the ?? fourth metacarpal. ?? 2. ??Punctate 1 mm high density focus along the radial aspect of the ?? dorsal distal radius which may represent an embedded foreign body of ?? indeterminate chronicity. ? Electronically signed by: ??Jono Mason MD ??05/14/2024 02:28 AM EST RP ? Dictated By: ?Jono Mason MD ? Signed By: ?<Electronically signed by Jono Mason MD in OV> ? 05/14/24 0228 ? DD/ 0050 ? TD/TT: 05/14/24 0055 ? Diesel Retrofit Designer: EF ? Procedure Note Car [place] - 05/14/2024 [id number] [place] [address] XRay Report Signed Patient: Marvin Atkinson MR#: [id number] : 1985Acct:[id number] Age/Sex: 38 / MADM Date: 05/13/24 Loc: HO.ED Attending Dr: Ordering Physician: Keya Lanier DO Date of Service: 05/14/24 Procedure(s): XR hand wrist RT Accession Number(s): [id number] cc: Keya Lanier DO; Mita Eddy EXAMINATION: XR HAND/WRIST, RIGHT CLINICAL INFORMATION: fall, pain COMPARISON: None available. TECHNIQUE: PA, lateral, and oblique views of the right hand and wrist. FINDINGS: An oblique longitudinal intra-articular fracture of the base of the fourth metacarpal is present. Adjacent soft tissue inflammatory changes are noted. A 1 mm high density punctate focus is noted along the radial aspect of the dorsal distal radius. Normal bone mineralization. No soft tissue emphysematous changes. XR/XR hand wrist RT IMPRESSION: 1. Oblique longitudinal intra-articular fracture of the base of the fourth metacarpal. 2. Punctate 1 mm high density focus along the radial aspect of the dorsal distal radius which may represent an embedded foreign body of indeterminate chronicity. Electronically signed by: Jono Mason MD 05/14/2024 02:28 AM [facility] Dictated By: Jono Mason MD Signed By: <Electronically signed by Jono Mason MD in OV> 05/14/24 0228 DD/ TD/TT: 05/14/24 005 Diesel Retrofit Designer: [facility]BR[facility] External Provider IMG XR PROCEDURES Edited Result - Final * (ABNORMAL) Lipid Panel, Standard (02/13/2024 9:33 AM EDT) Triglycerides 155(H) <150 mg/dL [facility] Comment:Desirable Triglyceri de: less than 150 mg/dLBorderline High Triglyceride 150-199 mg/dLHigh Triglyceride: 200-499 mg/dLVery High Triglyceride: greater than or equal to 5OO mg/dL Cholesterol 208(H) <200 mg/dL [facility] Comment:Desirable Cholestero l: less than 200 mg/dLBorderline High Cholesterol: 200-239 mg/dLHigh Cholesterol: greater than 239 mg/dL LDL Cholesterol Calculated 131(H) <100 mg/dL [facility] Comment:Desirable LDL: less than 100 mg/dLNear Optimal/Above Optimal LDL: 110- 129 mg/dLBorderline High LDL: 130-159 mg/dLHigh LDL: 160-189 mg/dLVery High LDL: greater than or equal to 190 mg/dL HDL Cholesterol 46 >40 mg/dL [facility] Comment:Desirable HDL: great er than 40 mg/dL Note: This HDL assay may give artificially low results in patients with liver disease. Blood Venous blood specimen / Unknown 02/13/2024 9:33 AM EDT 02/13/2024 11:21 AM EDT us Mita Eddy MD LAB BLOOD ORDERABLES Final Res ult [facility] [address] [place] [phone] from Last 3 Months or Most Recently Relevant to Health Maintenance Insurance [facility] HSN FULL [place] FULL DENTAL-[facility] MEDICAID LIMITED ADULT DENTAL - HSN FULL (MEDICAID) Care Teams Storm Sash Maker Relationship Specialty Start Date End Date Mita Eddy MD [address] [place] [id number] PCP - General Family Medicine 02/08/24
--- OUTSIDE RECORDS SUMMARY | 2024-07-03 16:10 | XMS_ITS | Encounter Summary ---
Author Organization [employer] Address [address] [place] [address] [place] [address] Care Team Providers Care Tire Shop Mechanic Name Role Phone Mita Eddy MD Primary Care Provider [phone] Reason for Visit * Reason Comments Follow-up Encounter Details Date Type Department Care Team ([facility] st Contact Info) Description 07/03/2024 11:30 AM EST Office Visit [facility] [address] [place] [address] Mita Eddy MD [address] [place] [address] Closed fracture of fourth metacarpal bone of right hand with delayed healing, unspecified fracture morphology, subsequent encounter (Primary Dx); Dietary counseling; Exercise counseling; Class 3 severe obesity with serious comorbidity and body mass index (BMI) of 40.0 to 44.9 in adult, unspecified obesity type (CMS/HCC) Social History Tobacco Use Types Packs/Day Years [...] AM EDT documented as of this encounter Last Filed Vital Signs Vital Sign Reading [...] Mass Index 40 07/03/2024 11:31 AM EST documented in this encounter Plan of Treatment Not on file documented as of this encounter Procedures Procedure Name Priority Date/Time Associated Diagnosis Comments XR HAND 3+ VIEWS RIGHT Routine 07/03/2024 12:21 PM EST Closed fracture of fourth metacarpal bone of right hand with delayed healing, unspecified fracture morphology, subsequent encounter documented in this encounter Results * XR Hand 3+ Views Right (07/03/2024 12:21 PM EST) Anatomical Region Laterality Modality Upper Extremities, Hand Right Radiogra phic Imaging 07/03/2024 12:2 1 PM EST Narrative 07/03/2024 12:55 PM EST ?[facility] ?[address] ?[place] [address] ?XRay Report ? Signed ? Patient: Marvin Atkinson ? MR#: [id number] ? : 1985 ?Acct:[id number] ? Age/Sex: 38 / M ?ADM Date: 07/03/24 ? Loc: HO.HHCX ? Attending Dr: Mita Eddy MD ? Ordering Physician: Mita Eddy ?? Date of Service: 07/03/24 ?? Procedure(s): XR hand RT min 3V ?? Accession Number(s): [id number] ? cc: Mita Eddy ? EXAMINATION: ?? [...] DD/ 1221 ? TD/TT: 07/03/24 1228 ? Lunch Cook: ? Procedure Note Donotuseinterpreter, Image - 07/03/[address] [address] XRay Report Signed Patient: Marvin Atkinson MR#: [id number] : 1985Acct:[id number] Age/Sex: 38 / MADM Date: 07/03/24 Loc: HO.HHCX Attending Dr: Mita Eddy MD Ordering Physician: Mita Eddy Date of Service: 07/03/24 Procedure(s): XR hand RT min 3V Accession Number(s): [id number] cc: Mita Eddy EXAMINATION: XR HAND, RIGHT [...] by: Jamey Dahl MD 07/03/2024 12:52 PM [facility] Dictated By: Jamey Ghotra MD Signed By: <Electronically signed by Jamey Segovia MDin OV> 07/03/24 1252 DD/ 1221 TD/TT: 07/03/24 1228 Lunch Cook: Mita Eddy MD IMG XR PROCEDURES Final Result documented in this encounter Visit Diagnoses Diagnosis Closed fracture of fourth metacarpal bone of right hand with delayed healing, unspecified fracture morphology, subsequent encounter- Primary Dietary counseling Dietary surveillance and counseling Exercise counseling Class 3 severe obesity with serious comorbidity and body mass index (BMI) of 40.0 to 44.9 in adult, unspecified obesity type (CMS/HCC) documented in this encounter Additional Health Concerns Assessment Noted Time PHQ-9 Depression Total Score: 0 03/25/20 1:09 PM EDT documented as of this encounter Care Teams Tire Shop Mechanic Relationship Specialty Start Date End Date Mita Eddy MD [address] [place] [address] PCP - General Family Medicine 02/08/24 documented as of this encounter
== END 2024-07-03 12:20 | disposition home or self-care (01) ==
LOC: HO.HHCX 12:19
PROVIDERS: Visit Provider General Practice
DX: S62.304G Unspecified fracture of fourth metacarpal bone, right hand, subsequent encounter for fracture with delayed healing (principal)
CPT/HCPCS: 73130

== ENCOUNTER → 2024-07-03 12:21 | Outpatient (BNV) | payer MEDICAID, SELFPAY | PROVIDERS: Visit Provider Radiology Diagnostic Radiology | DX: S62.304G Unspecified fracture of fourth metacarpal bone, right hand, subsequent encounter for fracture with delayed healing (principal) | CPT/HCPCS: 73130 ==

== ENCOUNTER 2024-09-09 14:47 | Emergency (ER) | payer MEDICAID, OTHER, SELFPAY ==
--- NOTE | ~2024-09-09 | XR_ITS ---
EXAMINATION: XR CHEST 2 VIEWS HISTORY: pain COMPARISON: Comparison is made with the prior examination dated 11/13/2023. FINDINGS: PA and lateral views of the chest are submitted. The lungs are expanded and clear. There is no pleural effusion, pneumothorax, or pulmonary vascular congestion. The heart is normal in size. The bones are intact. XR/XR chest 2V IMPRESSION: No acute cardiopulmonary abnormality. Electronically signed by: Gilberto Barnett MD 09/09/2024 03:08 PM EDT
--- NOTE | 2024-09-09 14:48 | ECG_ITS ---
Test Reason : CP Blood Pressure : */* mmHG Vent. Rate : 70 BPM Atrial Rate : 70 BPM P-R Int : 176 ms QRS Dur : 102 ms QT Int : 364 ms P-R-T Axes : 44 0 11 degrees QTcB Int : 393 ms Normal sinus rhythm Minimal voltage criteria for LVH, may be normal variant ( R in aVL ) Borderline ECG When compared with ECG of 13-Nov-2023 04:25, No significant change was found Referred By: Mason Mcgee Electronically Signed By: Sergey Francisco
[2024-09-09 15:16] VITALS: BP 159/89; PULSE 73; RESP 19; TEMP 36.6; O2SAT 98; BMI 38.4
--- NOTE | 2024-09-09 15:16 | ED_ITS ---
HPI - General Adult General Chief complaint: Chest Pain Stated complaint: Chest pain,dizziness Time Seen by Provider: 09/09/24 16:04 History of Present Illness ED Provider: Padma JOHNSON narrative: The patient is a 38-year-old male with a history of hypertension. He says he takes 5 mg of amlodipine per day. He says that he gets his prescriptions filled at the urgent care center at the [facility]. He does not yet have a PCP there but he is hoping to get one. The patient says that he comes to the emergency room today because of symptoms that started at around noon. He says he was at his home, doing nothing in particular, possibly doing some dishes. When he developed some chest pain. He then felt dizzy. He then developed a headache. He says the headache is in the left side of his head and he indicates that it goes from above his left eye to the back of his left head above the neck posteriorly. He says he does not have a history of similar chest pain or headaches in the past. No definite fever, sweats, chills. No cough. The pain in his chest is worse when he takes a deep breath. Related Data Previous Rx's ?Medication ?Instructions ?Recorded cyclobenzaprine 10 mg tablet 10 mg PO TID PRN muscle spasm #14 11/13/23 tabs ibuprofen 600 mg tablet 600 mg PO Q8H PRN pain #20 tabs 11/13/23 lidocaine 5 % topical patch 1 patch topical DAILY #15 ea 11/13/23 hydrocodone 5 mg-acetaminophen 325 1 tab PO Q6H PRN pain #10 tabs 05/14/24 mg tablet Allergies Allergy/AdvReac Type Severity Reaction Status Date / Time No Known Allergies Allergy Verified 09/09/24 15:17 Review of Systems 2 Review of Systems: Yes all other systems are reviewed and are negative [facility] Past Medical History Medical History (Updated 09/10/24 @ 00:01 by Jaye Man) No pertinent past medical history Social History Social History (Updated 05/13/24 @ 23:50 by Keya Lanier DO) Alcohol intake: current Alcohol intake frequency: a few times a week Alcohol type: beer Patient Tobacco Use Status: Tobacco use Unknown Advance Directives: No Advance Directives Information Provided: No Advance Directives on File: No Do you have a plan to hurt others: No Plan Physical Exam ED Vital Signs: Vital Signs - 24 hr 09/09/24 15:16 09/09/24 18:11 09/09/24 18:14 Temperature 98 F Pulse Rate 73 66 Respiratory Rate 19 16 14 Blood Pressure 159/89 H 137/79 Pulse Oximetry 98 98 Oxygen Delivery Method Room Air Room Air 09/09/24 18:59 Temperature 96.9 F Pulse Rate 66 Respiratory Rate 14 Blood Pressure 137/79 Pulse Oximetry 98 Oxygen Delivery Method Room Air BMI result Body Mass Index 38.4 Const Other: The patient is awake and alert. He does not appear obviously ill. He is pleasant and cooperative. Orientation/consciousness: patient oriented x3 HENMT Other: Face is symmetrical. The posterior pharynx is normal. Mucous membranes are moist. Eyes General: appearance normal, both eyes and all related structures Pupils: Equal, round and reactive pupils present EOM: EOMs intact bilaterally Neck Other: The neck is entirely supple. He can touch his chin to his chest easily. No adenopathy. Neck: Yes full ROM and Yes supple Resp Effort & Inspection: normal respiratory effort Auscultation: clear to auscultation bilaterally Cardio Rate: regular rate Rhythm: regular rhythm Heart sounds: S1 normal heart sound present and S2 normal heart sound present GI Other: Abdomen is soft and nontender Skin General skin exam: no rashes or lesions noted Neuro General: patient oriented x3, gait normal, tone normal, moves all extremities, no focal motor deficits and CN's II-XI intact bilaterally Cranial nerves: Yes Equal, round and reactive pupils present Extrem Other: No calf swelling or tenderness or asymmetry, no edema Course Course Course Narrative: RME, this is a rapid medical exam performed by Jose Roberto Mcgee please refer to primary provider for complete H&P- 38-year-old male presents for evaluation of chest pain that started today. He reports a history of hypertension. EKG shows a sinus rhythm without acute ischemia. Plan for labs, chest x-ray. Medications Administered Discontinued Medications Generic Name Dose Route Start Last Admin Trade Name Freq PRN Reason Stop Dose Admin Ketorolac Tromethamine 30 mg 09/09/24 16:24 09/09/24 16:37 Ketorolac Tromethamine 30 Mg/Ml Vial IM 09/09/24 16:25 30 mg ONCE ONE Administration Prochlorperazine Edisylate 10 mg 09/09/24 16:24 09/09/24 16:38 Prochlorperazine Edisylate 10 Mg/2 Ml Vial IM 09/09/24 16:25 10 mg ONCE ONE Administration Medical Decision Making Medical Decision Making [facility] Narrative: The patient presents with complaints of chest pain and also of headache. His chest pain came first and then the headache. The headache does not sound like a thunderclap headache. His EKG does not have any concerning findings and he has two undetectable troponins. Additionally the patient has an undetectable D- dimer. Serology is negative for influenza, COVID, and RSV. CBC shows a normal white count with a normal differential. Chest x-ray is negative. The patient's description of the headache suggests a possible migraine syndrome. He was given an injection of ketorolac and prochlorperazine intramuscularly. He felt considerably better. I think he may be discharged. His blood pressures were unremarkable in the emergency room. He should continue his amlodipine. He has been getting his refills for this medication at the [facility] urgent Care. He is on a waiting list to get a PCP at the [facility]. Lab Data 09/09/24 15:14 09/09/24 15:14 Labs: Lab Results 09/09/24 09/09/24 Range/Units 15:14 17:47 WBC 8.6 (4.8-10.8) X10*3/uL RBC 5.19 (4.60-5.80) X10*6/uL Hgb 13.3 L (14.0-18.0) g/dl Hct 39.6 L (42.0-52.0) % MCV 76.3 L (80.0-98.0) fL MCH 25.6 L (27.0-33.0) pg MCHC 33.6 (31.0-36.0) g/dl RDW 13.1 (11.0-16.0) % Plt Count 234 (160-400) X10*3/uL MPV 10.9 (9.4-12.4) fL Immature Gran % (Auto) 0.4 (0.0-0.4) % Neut % (Auto) 55.5 (45-73) % Lymph % (Auto) 32.9 (20-40) % Fajardo % (Auto) 5.3 (2-11) % Eos % (Auto) 5.3 H (0-4) % Baso % (Auto) 0.6 (0-2) % Lymph # (Auto) 2.8 (1.2-4.9) X10*3/uL Fajardo # (Auto) 0.5 (0.1-1.2) X10*3/uL Eos # (Auto) 0.5 H (0.0-0.4) X10*3/uL Baso # (Auto) 0.1 (0.0-0.2) X10*3/uL Abs Immat Gran (auto) 0.03 (0.00-0.03) X10*3/uL Absolute Neuts (auto) 4.8 (2.0-8.3) x10*3/uL Absolute Nucleated RBC 0.000 (0.0-0.012) X10*3/uL Nucleated RBC % (auto) 0.0 (0.0-0.2) /100WBC D-Dimer High Sensitivty < 150 NG/ML Sodium 135 (135-145) mmol/L Potassium 4.4 (3.3-5.1) mmol/L Chloride 101 (96-108) mmol/L Carbon Dioxide 23 (22-29) mmol/L Anion Gap 15 (12-20) BUN 12 (9-16) mg/dL Creatinine 0.87 (0.5-1.4) mg/dL Estim Creat Clear Calc 143.0 Estimated GFR > 60 Random Glucose 314 H (60-115) mg/dL Calcium 9.2 (8.4-10.2) mg/dL Magnesium 1.9 (1.6-2.6) mg/dL Total Bilirubin 0.4 (0.0-1.0) mg/dL AST 23 (5-37) U/L ALT 33 (0-40) U/L Alkaline Phosphatase 87 (39-117) U/L Troponin I High Sens < 2.7 < 2.7 (<3.5-35.0) ng/L B-Natriuretic Peptide < 10 (<100) pg/mL Total Protein 7.5 (6.5-8.0) g/dL Albumin 4.3 (3.5-5.0) g/dL Lipase 12 (8-78) U/L Influenza Type A (PCR) NEGATIVE (Negative) Influenza Type B (PCR) NEGATIVE (Negative) RSV RNA Qual (PCR) NEGATIVE (Negative) SARS-CoV-2 RNA (RT-PCR) NEGATIVE (Negative) Independent Interpretation I performed an independent interpretation of an: EKG Interpretation: EKG at 1449 shows normal sinus rhythm at 70 beats per minute. EKG is similar to previous EKGs. No definite acute ischemic changes. Discharge Plan Discharge Clinical Impression: Chest pain, Headache Patient Disposition: Home, Self-Care Additional Instructions: Your testing in the emergency room today seems very reassuring. Please continue your regular blood pressure medications. Please continue your efforts at getting a primary care doctor at the [facility]. If at any point you feel significantly worse please return to the emergency room for further evaluation. Prescriptions: No Action cyclobenzaprine 10 mg tablet 10 mg PO TID PRN (Reason: muscle spasm) Qty: 14 0RF ibuprofen 600 mg tablet 600 mg PO Q8H PRN (Reason: pain) Qty: 20 0RF lidocaine 5 % adhesive patch,medicated 1 patch topical DAILY Qty: 15 0RF Rx Instructions: leave on most painful area for up to 12 hrs hydrocodone-acetaminophen 5-325 mg tablet 1 tab PO Q6H PRN (Reason: pain) Qty: 10 0RF Rx Instructions: partial fill okay; Partial Fill upon patient request. Referrals: [facility] [Provider Group] Interventions: ED Discharge Assessment Last Done: 09/09/24 18:59 Discharge Date/Time: 09/09/24 18:59 Print Language: Maltese
[2024-09-09 15:20] LABS: MANUAL DIFF FLAG NO
[2024-09-09 15:22] LABS: Basophils Absolute Auto 0.1 X10*3/uL (0.0-0.2); Basophils Percent Auto 0.6 % (0-2); Eosinophils Absolute Auto 0.5 X10*3/uL (0.0-0.4); Eosinophils Percent Auto 5.3 % (0-4); Hematocrit 39.6 % (42.0-52.0); Hemoglobin 13.3 g/dl (14.0-18.0); Imm Gran Abs Auto 0.03 X10*3/uL (0.00-0.03); Imm Gran Pct Auto 0.4 % (0.0-0.4); Lymphocytes Absolute Auto 2.8 X10*3/uL (1.2-4.9); Lymphocytes Percent Auto 32.9 % (20-40); Mean Corpuscular HGB Conc 33.6 g/dl (31.0-36.0); Mean Corpuscular Hemoglobin 25.6 pg (27.0-33.0); Mean Corpuscular Volume 76.3 fL (80.0-98.0); Mean Platelet Volume 10.9 fL (9.4-12.4); Monocytes Absolute Auto 0.5 X10*3/uL (0.1-1.2); Monocytes Percent Auto 5.3 % (2-11); Neutrophils Absolute Auto 4.8 x10*3/uL (2.0-8.3); Neutrophils Percent Auto 55.5 % (45-73); Platelet Count 234 X10*3/uL (160-400); Red Blood Count 5.19 X10*6/uL (4.60-5.80); Red Cell Distribution Width 13.1 % (11.0-16.0); White Blood Count 8.6 X10*3/uL (4.8-10.8)
[2024-09-09 15:42] LABS: Alanine Aminotransferase 33 U/L (0-40); Albumin Level 4.3 g/dL (3.5-5.0); Anion Gap 15 (12-20); Aspartate Amino Transferase 23 U/L (5-37); B Type Natriuretic Peptide < 10 pg/mL (<100); Bilirubin Total 0.4 mg/dL (0.0-1.0); Blood Urea Nitrogen 12 mg/dL (9-16); Calcium 9.2 mg/dL (8.4-10.2); Carbon Dioxide 23 mmol/L (22-29); Chloride 101 mmol/L (96-108); Estimated Glomerular Filt Rate > 60; Glucose Random 314 mg/dL (60-115); Magnesium 1.9 mg/dL (1.6-2.6); Potassium 4.4 mmol/L (3.3-5.1); Sodium 135 mmol/L (135-145); Total Protein 7.5 g/dL (6.5-8.0)
[2024-09-09 15:43] LABS: Lipase 12 U/L (8-78)
[2024-09-09 15:47] LABS: Troponin-I High Sensitivity < 2.7 ng/L (<3.5-35.0)
[2024-09-09 15:59] LABS: Influenza A PCR NEGATIVE (Negative); Influenza B PCR NEGATIVE (Negative); Resp Syncy Virus RNA Qual PCR NEGATIVE (Negative); SARS COV2 PCR INHOUSE NEGATIVE (Negative)
[2024-09-09] MEDS: Ketorolac Tromethamine 30 MG/ML VIAL IM (16:37)
[2024-09-09] MEDS: Prochlorperazine Edisylate 10 MG/2 ML VIAL IM (16:38)
[2024-09-09 16:56] LABS: Alkaline Phosphatase 87 U/L (39-117)
[2024-09-09 18:02] LABS: D Dimer High Sensitivity < 150 NG/ML
[2024-09-09 18:11] VITALS: BP 137/79; PULSE 66; RESP 16; O2SAT 98
[2024-09-09 18:11] LABS: Troponin-I High Sensitivity < 2.7 ng/L (<3.5-35.0)
[2024-09-09 18:14] VITALS: RESP 14
--- OUTSIDE RECORDS SUMMARY | 2024-09-09 18:53 | XMS_ITS | Referral Summary ---
Author Organization [facility] Address [address] [place] [address] Care Team Providers Care Catcher Plug Name Role Phone Mita Eddy Primary Care Provider [phone] Encounters Date Type Department Care Team Description 08/25/2024 Orders Only [facility] [address] [place] [phone] Gema Cohen PA Nondisplaced fracture of base of fourth metacarpal bone, right hand, initial encounter for closed fracture (Primary Dx) 07/29/2024 2:00 PM EST Office Visit [facility] [address] [place] [phone] Gema Cohen PA Nondisplaced fracture of base of fourth metacarpal bone, right hand, initial encounter for closed fracture (Primary Dx) 07/23/2024 Orders Only [facility] [address] [place] [phone] Gema Cohen PA Pain of right hand (Primary Dx) 07/14/2024 Orders Only [facility] [address] [place] [phone] Gema Cohen PA Pain of right hand (Primary Dx) 07/04/2024 Orders Only [facility] [address] [place] [phone] Gema Cohen PA Pain of right hand (Primary Dx) from Last 3 Months Allergies No known active allergies Medications No known medications Social History Tobacco Use Types Packs/Day Years Used Date Smoking Tobacco: Never Assessed Sex and Gender Information Value Date Recorded Sex Assigned at Male 05/29/2024 10:37 AM EST Legal Sex Male 9:54 AM EST Gender Identity Male 05/29/2024 10:37 AM EST Sexual Orientation Not on file Plan of Treatment Not on file Procedures * Due to [place] Trip[employer]ary law, this organization might not be sharing negative HIV tests. Procedure Name Priority Date/Time Associated Diagnosis Comments XR HAND 3+ VW RIGHT Routine 07/29/2024 2 :16 PM EST Pain of right hand from Last 3 Months Results * Due to [place] Trip[place]ary law, this organization might not be sharing negative HIV tests. * XR Hand 3+ vw Right (07/29/2024 2:16 PM EST) Anatomical Region Laterality Modality Upper Extremities, Hand Right Computed Radiography 07/29/2024 9:04 PM EST Impressions 07/29/2024 9:05 PM EST FINDINGS/IMPRESSION: There is a subacute healing mildly displaced fracture involving the proximal aspect of the fourth metacarpal with possible intra-articular extension to the fourth carpometacarpal joint. ??The joint spaces are maintained. ??Tiny metallic density foreign body projects within the soft tissues lateral to the distal radius. If this radiology report contains a blank impression section, it is an incomplete radiology report. ??Please contact the interpreting radiologist or applicable radiology division as soon as possible to obtain the completed interpretation. ? Workstation ID: [id number] Narrative 07/29/2024 9:05 PM EST COMPARISON: There are no prior studies available for comparison at this time. Resulting Agency Comment [id number] Procedure Note Woody Null MD - 07/29/2024 COMPARISON: There are no prior studies available for comparison at thistime. IMPRESSION: FINDINGS/IMPRESSION: There is a subacute healing mildly displaced fractureinvolving the proximal aspect of the fourth metacarpal with possibleintra-articular extension to the fourth carpometacarpal joint. The jointspaces are maintained. Tiny metallic density foreign body projects withinthe soft tissues lateral to the distal radius. If this radiology report contains a blank impression section, it is anincomplete radiology report. Please contact the interpreting radiologistor applicable radiology division as soon as possible to obtain thecompleted interpretation. Workstation ID: [id number] us Gema MELÉNDEZ IMG XR PROCEDURES Final R esult from Last 3 Months Insurance HSNO/FREE CARE Care Teams Catcher Plug Relationship Specialty Start Date End Date Mita Eddy [address] [place] [address] PCP - General 05/21/24
--- OUTSIDE RECORDS SUMMARY | 2024-09-09 18:53 | XMS_ITS | Clinical Summary ---
Author Organization [facility] Address [address] [place] [address] Care Team Providers Care Travel Registered Nurse Nicu Name Role Phone Mita Eddy Primary Care Provider [phone] Allergies No known active allergies Medications No known medications Encounters Date Type Department Care Team Description 08/25/2024 Orders Only [facility] [address] [place] [id number] Gema Cohen PA Nondisplaced fracture of base of fourth metacarpal bone, right hand, initial encounter for closed fracture (Primary Dx) 07/29/2024 2:00 PM EST Office Visit [facility] [address] [phone] Gema Cohen PA Nondisplaced fracture of base of fourth metacarpal bone, right hand, initial encounter for closed fracture (Primary Dx) 07/23/2024 Orders Only [facility] [address] [place] [id number] Gema Cohen PA Pain of right hand (Primary Dx) 07/14/2024 Orders Only [facility] [address] [phone] Geam Cohen PA Pain of right hand (Primary Dx) 07/04/2024 Orders Only [facility] [address] [place] [id number] Gema Cohen PA Pain of right hand (Primary Dx) from Last 3 Months Social History Tobacco Use Types Packs/Day Years Used Date Smoking Tobacco: Never Assessed Sex and Gender Information Value Date Recorded Sex Assigned at Male 05/29/2024 10:37 AM EST Legal Sex Male 9:54 AM EST Gender Identity Male 05/29/2024 10:37 AM EST Sexual Orientation Not on file Plan of Treatment Health Maintenance Due Date Last Done Comments HIV Screening 1983 Hepatitis C Screening 1985 Varicella Vaccines (1 of 2 - 13+ 2-dose series) 09/17/1996 Hepatitis B Vaccines (1 of 3 - 19+ 3-dose series) 09/17/2002 DTaP,Tdap,and Td Vaccines (1 - Tdap) 09/17/2005 COVID-19 Vaccine (2023-2 5 season) 2024 Alcohol/Substance Use Screening 06/04/2024 Depression Screening and Follow-Up 06/04/2024 Social Drivers of Health Prabha ual Screening 06/04/2024 Influenza Vaccine (Season Ended) 2025 RSV Vaccine (60+ years old a nd patients) (1 - 1-dose 75+ series) 09/17/2058 Pneumococcal Vaccine: Pediat koby (0-5 Years) and At-Risk Patients (6-50 Years) Aged Out No longer eligible b ased on patient's age to complete this topic Procedures * Due to [place] Med[employer] law, this organization might not be sharing negative HIV tests. Procedure Name Priority Date/Time Associated Diagnosis Comments XR HAND 3+ VW RIGHT Routine 07/29/2024 2 :16 PM EST Pain of right hand from Last 3 Months Results * Due to [place] Med[employer] law, this organization might not be sharing [...] obtain the completed interpretation. ? Workstation ID: [id number] Narrative 07/29/2024 9:05 PM EST COMPARISON: There are no prior studies available for comparison at this time. Resulting Agency Comment [id number] Procedure Note Woody Null MD - 07/29/2024 [...] possible to obtain thecompleted interpretation. Workstation ID: [id number] Gema MELÉNDEZ IMG XR PROCEDURES Final R esult from Last 3 Months Insurance [facility] Member Subscriber Plan / Payer (Ef fective 2024-Present) Name:Marvin Avina Relation to Subscriber:Self Name:Marvin Avina Payer ID:[id number] Group ID:Not on file Type:Not on file Address: [address] [place] [address] HSNO/FREE CARE Care Teams Travel Registered Nurse Nicu Relationship Specialty Start Date End Date Mita Eddy [address] [place] [phone] PCP - General 05/21/24
[2024-09-09 18:59] VITALS: BP 137/79; PULSE 66; RESP 14; TEMP 36.1; O2SAT 98
== END 2024-09-09 18:59 | disposition home or self-care (01) ==
PROVIDERS: Physician Assistant; Emergency Provider Emergency Medicine
DX: R07.9 Chest pain, unspecified (principal); R51.9 Headache, unspecified; I10 Essential (primary) hypertension; Z03.818 Encounter for observation for suspected exposure to other biological agents ruled out; Z79.899 Other long term (current) drug therapy
CPT/HCPCS: 0241U; 36415; 71046; 80053; 83690; 83735; 83880; 84484; 85025; 85379; 93005; 96372; 99284; J0737; J1885

== ENCOUNTER → 2024-09-09 14:48 | Outpatient (BNV) | payer SELFPAY | PROVIDERS: Visit Provider Internal Medicine Cardiovascular Disease | DX: R07.9 Chest pain, unspecified (principal); R94.31 Abnormal electrocardiogram [ECG] [EKG] | CPT/HCPCS: 93010 ==

== ENCOUNTER → 2024-09-09 14:48 | Outpatient (BNV) | payer SELFPAY | PROVIDERS: Visit Provider Radiology Diagnostic Radiology | DX: R07.9 Chest pain, unspecified (principal) | CPT/HCPCS: 71046 ==

== ENCOUNTER 2024-12-24 16:04 | Outpatient (REF) | payer OTHER, SELFPAY ==
[2024-12-24 18:09] LABS: Alanine Aminotransferase 19 U/L (0-40); Albumin Level 4.8 g/dL (3.5-5.0); Alkaline Phosphatase 70 U/L (39-117); Anion Gap 14 (12-20); Aspartate Amino Transferase 19 U/L (5-37); Blood Urea Nitrogen 11 mg/dL (9-16); Calcium 9.4 mg/dL (8.4-10.2); Carbon Dioxide 22 mmol/L (22-29); Chloride 106 mmol/L (96-108); Estimated Glomerular Filt Rate > 60; Potassium 4.3 mmol/L (3.3-5.1); Sodium 138 mmol/L (135-145); Total Protein 7.7 g/dL (6.5-8.0)
== END 2024-12-24 16:05 | disposition home or self-care (01) ==
LOC: HO.HHCL 16:04
PROVIDERS: PCP Nurse Practitioner Family; Visit Provider Nurse Practitioner Family
DX: R31.9 Hematuria, unspecified (principal)
CPT/HCPCS: 36415; 80053

== ENCOUNTER 2025-01-09 09:25 | Outpatient (REF) | payer OTHER, SELFPAY ==
--- NOTE | ~2025-01-09 | MM_ITS ---
EXAMINATION: MM DIAGNOSTIC DIGITAL BREAST TOMOSYNTHESIS, BILATERAL CLINICAL INFORMATION: Left breast pain that started 4-5 months ago , and now painful lump COMPARISON: None. This is a baseline study. TECHNIQUE: Digital breast tomosynthesis is performed in both the craniocaudal and mediolateral oblique views along with computer-aided detection (CAD). Synthesized 2D images are generated from the tomosynthesis. Skin BB marker was placed in the left subareolar region, indicating the location of the clinical concern per patient. FINDINGS: BREAST COMPOSITION: There are scattered areas of fibroglandular density (ACR BI-RADS breast composition Category b). BILATERAL BREASTS: Retroareolar opacity seen in bilateral breasts, left greater than right, typical for gynecomastia. No significant masses, suspicious calcifications or other abnormalities are seen in either breast. MM/MM tomosynthesis diagnostic BI IMPRESSION: BILATERAL BREASTS: Findings typical of gynecomastia, left greater than right. Benign, no mammographic evidence of malignancy. Clinical follow-up is recommended, independent of the imaging findings. If the clinical concern persists, consider breast surgical consult. ASSESSMENT: BI-RADS 2 - Benign Findings Results were provided to the patient at time of visit by the technologist. Electronically signed by: Lauren Marroquin MD 01/09/2025 10:11 AM EDT
--- OUTSIDE RECORDS SUMMARY | 2025-01-09 09:31 | XMS_ITS | Clinical Summary ---
Author Organization [employer] Address [address] [place] [address] 7 [place] [address] Care Team Providers Care Terminal Carman Name Role Phone Mita Eddy MD Primary Care Provider Allergies No known active allergies Medications lidocaine (Lidoderm) 5 % patch APPLY 1 PATCH TOPICALLY TO SKIN, LEAVE ON FOR 12 HOURS AND OFF FOR 12 HOURS DIRECTED 11/13/19 24 Active Blood Pressure Monitoring (Omron 3 Series BP Monitor) device USE TO CHECK BLOOD PRESSURE TWICE A WEEK. 08/20/19 24 Active acetaminophen (Tylenol) 500 MG tablet Take 2 tablets (1,000 mg) by mouth every 6 (six) hours if needed for moderate pain or fever for up to 25 doses. 40 tablet 05/19/20 24 Active Blood Pressure Monitoring (Blood Pressure Kit) kit 1 each by Other route 2 times daily. Check blood pressure twice a wee. Dx hypertension 1 kit 05/19/20 24 Active FREESTYLE LITE test strip Use to test blood sugar 1x times daily 100 each 12 09/09/19 25 2025 Active Lancets misc Use to test blood sugar 1x times daily 100 each 09/09/19 25 Active Alcohol Swabs 70 % pads Use to test blood sugar 1x times daily 100 each 09/09/19 25 Active HYDROcodone-hannah taminophen ([place]) 5-325 MG tablet Take 1 tablet by mouth every 6 (six) hours if needed for pain. 05/14/20 24 Active metFORMIN, OSM, (Fortamet) 1000 MG 24 hr tabletIndicatio ns:Type 2 diabetes mellitus with hyperglycemia, without long-term current use of insulin (CMS/[facility]) Take 1 tablet (1,000 mg) by mouth with breakfast and with evening meal. Do not crush, chew, or split. 180 tablet 3 11/06/19 25 2025 Active SITagliptin (Januvia) 25 MG tabletIndicatio ns:Type 2 diabetes mellitus with hyperglycemia, without long-term current use of insulin (CMS/HCC) Take 1 tablet (25 mg) by mouth Once per day. 90 tablet 3 11/06/19 25 2025 Active Blood Glucose Monitoring Suppl (FreeStyle [place] Lite) w/Device kitIndications: Type 2 diabetes mellitus with hyperglycemia, without long-term current use of insulin (CMS/[facility]) Use to test blood sugar 2 times daily 1 kit 11/06/19 25 Active benazepril (Lotensin) 10 MG tabletIndicatio ns:Primary hypertension Take 0.5 tablets (5 mg) by mouth Once per day. 15 tablet 11 11/06/19 25 2025 Active amLODIPine (Norvasc) 10 MG tabletIndicatio ns:Primary hypertension Take 1 tablet (10 mg) by mouth Once per day. 90 tablet 3 11/06/19 25 2025 Active clotrimazole (Lotrimin) 1 % cream APPLY TOPICALLY TWICE DAILY FOR 28 DAYS 30 g 1 11/19/19 25 Active docusate sodium (Colace) 100 MG capsuleIndicati ons:External hemorrhoid TAKE 1 CAPSULE BY MOUTH TWICE DAILY 180 capsule 1 12/23/19 25 Active buPROPion XL (Wellbutrin XL) 150 MG 24 hr tablet TAKE 1 TABLET BY MOUTH EVERY DAY 90 tablet 3 12/24/19 25 Active buPROPion XL (Wellbutrin XL) 150 MG 24 hr tablet Take 1 tablet (150 mg) by mouth Once per day. Para perdir de peso 90 tablet 1 03/25/20 24 2024 Discontinued docusate sodium (Colace) 100 MG capsuleIndicati ons:External hemorrhoid Take 1 capsule (100 mg) by mouth 2 times daily. 60 capsule 1 10/30/19 25 2024 Discontinued Active Problems Problem Noted Date Diagnosed Date Mathieu 09/08/2024 Assessment & Plan (09/08/2024 4:02 PM EDT): Sec to new onset DM. Rx clotrimazole cream bid x 1-2w Advised importance of tight control of DM FU w RN and PCP Type 2 diabetes mellitus wit h hyperglycemia, without long-term current use of insulin 09/08/2024 Assessment & Plan (11/11/2024 10:45 AM EDT): New onset, Aic is >10 Increase Metformin to 1000mg BID Add Januvia 25mg daily (pt declines insulin or GLP-1) Counseled re more frequent low calorie/carb meals. Check fgstk 2x daily Encouraged physical activity as tolerated. 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 Check fgstk 1x daily Encouraged physical activity as tolerated. 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 including CV, neurological, GI and renal complications, emphazied the mprotance of clsoe fu with PCP team, life style modifications Closed fracture of fourth me tacarpal bone of right hand with delayed healing 07/05/2024 Class 2 severe obesity with serious comorbidity and body mass index (BMI) of 38.0 to 38.9 in adult 03/25/2024 Assessment & Plan (03/25/2024 2:06 PM EDT): Start Wellbutrin for weight loss, BMI 40 and HTN If this is not helpful, will apply for PA for [employer] Primary hypertension 08/20/2023 Assessment & Plan (11/11/2024 10:43 AM EDT): Continue amlodipine to 10mg and Benazepril 10mg Counseled re low salt diet/increase moderate physical activity. Check home BP 2-3 times per week and prn CP/FRENCH/CHOU/weakness FU if BP > 140/90 for three consecutive measurements, or any symptoms develop Assessment & Plan (09/08/2024 4:01 PM EDT): Increase amlodipine to 10mg/d and add benazepril, may switch to combo (Lotrel) if tolerated individually). Counseled re low salt diet/increase moderate physical activity. Check home BP BIW and prn CP/FRENCH/CHOU/weakness FU BP w RN in 3w and w PCP in 6-8w Assessment & Plan (07/05/2024 11:26 AM EST): Maintenance: Amlodipine 5mg, encouraged compliance due to risk of untreated BP for heart attack and stroke BMP: normal renal function Lipid Panel: LDL 131 ASCVD Risk: The 10-year ASCVD risk score (Cb BEE, et al., 2019) is: 2.4% Values used to calculate the score: Age: 38 years Sex: Male Is Non- : No Diabetic: No Tobacco smoker: No Systolic Blood Pressure: 161 mmHg Is BP treated: Yes HDL Cholesterol: [...] consulting health care provider Assessment & Plan (03/25/2024 2:04 PM EDT): [...] prescriptions without first consulting health care provider Resolved Problems Problem Noted Date Diagnosed Date Resolved Date Encounter to establish care with new doctor 02/08/2024 11/11/2024 Encounters Date Type Department Care Team Description 12/23/2024 5:20 PM EDT Office Visit [facility] [address] [place] [phone] Cece Stephens, [place]A Hematuria, unspecified type (Primary Dx) 12/23/2024 Telephone [facility] [address] [place] [phone] Mita Eddy MD medication refill 12/23/2024 Refill [facility] [address] [place] [phone] Mita Eddy MD 12/23/2024 Travel 12/21/2024 Refill [facility] [address] [place] [phone] Gabbi Cardona, DAMIR External hemorrhoid 11/28/2024 Orders Only [facility] [address] [place] [phone] Martine Schrader MD Breast buds (Primary Dx) 11/18/2024 Refill [facility] [address] [place] [phone] Brianna Drew MD 11/05/2024 3:30 PM EDT Office Visit [facility] [address] [place] [phone] Mita Eddy MD Type 2 diabetes mellitus with hyperglycemia, without long-term current use of insulin ([facility]) (Primary Dx); Breast buds; Primary hypertension; Closed displaced fracture of fourth metacarpal bone of right hand with delayed healing, unspecified portion of metacarpal, subsequent encounter; Class 2 severe obesity with serious comorbidity and body mass index (BMI) of 38.0 to 38.9 in adult, unspecified obesity type (CMS/HCC) 11/05/2024 Travel 11/04/2024 Telephone [facility] [address] [place] [phone] Mita Eddy MD chart prep 10/31/[address] [phone] Mita Eddy MD Care Coordination 10/30/2024 Orders Only [address] [phone] Brianna Drew MD 10/29/2024 9:40 AM EDT Office Visit [facility] [address] [place] [phone] Gabbi Cardona NP External hemorrhoid (Primary Dx); Encounter for issue of repeat prescription 10/29/2024 Refill [facility] [address] [place] [phone] Brianna Drew MD from Last 3 Months Social History Tobacco [...] Sign Reading Time Taken Comments Blood Pressure 146/88 12/23/2024 5:22 PM EDT Pulse 72 12/23/2024 5:22 PM EDT Temperature 36.8 C (98.3 F) 12/23/2024 5:22 PM EDT Respiratory Rate 16 12/23/2024 5:22 PM EDT Oxygen Saturation 100% 10/29/2024 9:54 AM EDT Inhaled Oxygen Concentration - - Weight 116 kg (255 lb 8 oz) 12/23/2024 5:22 PM E DT Height 180.3 cm (5' 11 ) 11/05/2024 3:42 PM EDT Body Mass Index 35.64 11/05/2024 3:42 PM EDT Plan of Treatment Health Maintenance Due Date Last Done Comments HIV Screening 1985 Disability Screening 1983 Diabetes: Foot Exam 09/17/1993 Eye Exam 09/17/1993 Family Planning (PISQ) 09/17/1998 HPV Vaccines (1 - Male 3-dos e series) 09/17/1998 Hepatitis C Screening 09/17/2001 DTaP/Tdap/Td Vaccines (1 - Tdap) 09/17/2002 Diabetes: Urine Protein Screening 09/17/2002 Hepatitis B Vaccines (1 of 3 - 19+ 3-dose series) 09/17/2002 Pneumococcal Vaccine: Pediatrics (0 to 5 Years) and At-Risk Patients (6 to 49) Years (1 of 2 - PCV) 09/17/2002 COVID-19 Vaccine ( - 2023-2 5 season) 2024 Dental Oral Exam 09/01/2024 03/03/2024 Diabetes: Hemoglobin A1C 12/08/2024 09/08/2024 Dental Prophylaxis 01/28/2025 07/30/2024 Influenza Vaccine (#1) 2025 Lipid Panel 02/12/2025 02/13/2024 Dental X-Ray: Bitewings 03/04/2025 03/03/20 24, 11/16/2023 Alcohol/Substance Use Screening 03/25/2025 03/25/2024 Depression Screening 03/25/2025 03/25/2024, 03/25/2024 SDOH Screening 03/25/2025 03/25/2024 Tobacco Screening 11/05/2025 11/05/2024 Dental X-Ray: Full Mouth 03/04/2027 024, 11/16/2023 Zoster Vaccines (1 of 2) 09/17/2033 RSV [...] patient's age to complete this topic Meningococcal B Vaccine Aged Out No l onger eligible based on patient's age to complete [...] Procedure Name Priority Date/Time Associated Diagnosis Comments COMPREHENSIVE METABOLIC PANEL Routine 12/24/2024 4:14 PM EDT Hematuria, unspecified type POCT URINALYSIS DIPSTICK Routine 12/23/2024 5:46 PM EDT Hematuria, unspecified type POCT GLUCOSE Routine 11/05/2024 3:43 PM EDT Type 2 diabetes mellitus with hyperglycemia, without long-term current use of insulin ([facility]) POCT GLYCATED HEMOGLOBIN, TOTAL Routine 09/08/2024 3:52 PM EDT Type 2 diabetes mellitus with hyperglycemia, without long-term current use of insulin ([facility]) PROPHYLAXIS - ADULT Routine 07/30/2024 1 :00 PM EST INTRAORAL - COMPLETE SERIES OF RADIOGRAPHIC IMAGES Routine 03/03/2024 9:00 AM EDT Periodontal disease Dental caries COMPREHENSIVE ORAL EVALUATION - NEW OR ESTABLISHED PATIENT Routine 03/03/2024 9:00 AM EDT Periodontal disease Dental caries LIPID PANEL, STANDARD Routine 02/13/2024 9:33 AM EDT Primary hypertension from Last 3 Months or Most Recently Relevant to Health Maintenance Results * Comprehensive Metabolic Panel (12/24/2024 4:14 PM EDT) Sodium 138 135 - 145 mmol/L [facility] Potassium 4.3 3.3 - 5.1 mmol/L [facility] Chloride 106 96 - 108 mmol/L [facility] Carbon Dioxide 22 22 - 29 mmol/L [facility] Anion Gap 14 12 - 20 [facility] Urea Nitrogen (BUN) 11 9 - 16 mg/dL [facility] Creatinine, Serum 0.91 0.5 - 1.4 mg/dL [facility] Estimated Glomerular Filt Rate >60 [facility] Comment:Chronic Kidney Disea se: Estimated GFR < 60 mL/min/1.85m0Efxsri Kidney Disease: Estimated GFR < 15 mL/min/1.73m2 Glucose 105 60 - 115 mg/dL [facility] Calcium 9.4 8.4 - 10.2 mg/dL [facility] Bilirubin, Total 0.5 0.0 - 1.0 mg/dL [facility] Aspartate Amino Transferase 19 5 - 37 U/L [facility] Alanine Aminotransferase 19 0 - 40 U/L [facility] Total Protein 7.7 6.5 - 8.0 g/dL [facility] Albumin Level 4.8 3.5 - 5.0 g/dL [facility] Alkaline Phosphatase 70 39 - 117 U/L [facility] Blood Venous blood specimen / Unknown 12/24/2024 4:14 PM EDT 12/24/2024 5:33 PM EDT Cece Stephens [facility] LAB BLOOD ORDERABLES Final Resu lt [facility] [address] [place] [phone] * POCT Urinalysis (12/23/2024 5:46 PM EDT) Color, UA Yellow Clarity, UA Clear Glucose, UA Negative Bilirubin, UA Negative Ketones, UA Negative Spec Grav, UA 1.030 Comment:>=1.030 Blood, UA Negative Negative, None Detected pH, UA 6.0 Protein, UA Trace Comment:30mg Urobilinogen, UA 0.2 Leukocytes, UA Negative Negative, Rare, Trace Nitrite, UA Negative Negative, None Detected Appearance, UA clear Urine 12/23/2024 5:46 PM EDT [facility] ENTER/EDIT O RDERABLES Final Result * (ABNORMAL) POCT Glucose (11/05/2024 3:43 PM EDT) Glucose Blood, POC 214(A) 60 - 200 mg/dL [facility] Media Lot # [id number] Lot# Expiration Date 103,025 Blood Capillary blood specimen / Unknown 11/05/2024 3:43 PM EDT Mita Eddy MD POINT OF CARE TEST ENTER/EDIT ORDERABLES Final Result * (ABNORMAL) POCT HGB A1C (09/08/2024 3:52 PM EDT) Pathologist [facility] Hemoglobin A1C 11.3(A) 4.0 - 6.0 % QC Media Lot # [id number] Lot# Expiration Date 1,026 Blood 09/08/2024 3:52 PM EDT Brianna Drew MD POINT OF CARE TEST ENTER /EDIT ORDERABLES Final Result * (ABNORMAL) Lipid Panel, Standard (02/13/2024 9:33 AM EDT) Triglycerides 155(H) <150 mg/dL [facility] Comment:Desirable Triglyceri de: less than 150 mg/dLBorderline High Triglyceride 150-199 mg/dLHigh Triglyceride: 200-499 mg/dLVery High Triglyceride: greater than or equal to 5OO mg/dL Cholesterol 208(H) <200 mg/dL [facility] Comment:Desirable Cholestero l: less than 200 mg/dLBorderline High Cholesterol: 200-239 mg/dLHigh Cholesterol: greater than 239 mg/dL LDL Cholesterol Calculated 131(H) <100 mg/dL [facility] Comment:Desirable LDL: less than 100 mg/dLNear Optimal/Above Optimal LDL: 110- 129 mg/dLBorderline High LDL: 130-159 mg/dLHigh LDL: 160-189 mg/dLVery High LDL: greater than or equal to 190 mg/dL HDL Cholesterol 46 >40 mg/dL [facility] Comment:Desirable HDL: great er than 40 mg/dL Note: This HDL assay may give artificially low results in patients with liver disease. Blood Venous blood specimen / Unknown 02/13/2024 9:33 AM EDT 02/13/2024 11:21 AM EDT us Mita Eddy MD LAB BLOOD ORDERABLES Final Res ult [facility] [address] [place] [address] [phone] from Last 3 Months or Most Recently Relevant to Health Maintenance Insurance spring [address] [id number] [employer] [facility] FULL spring [address] [id number] [employer] HSN FULL DENTAL-[facility] MEDICAID LIMITED ADULT DENTAL - HSN FULL (MEDICAID) Care Teams Terminal Carman Relationship Specialty Start Date End Date Mita Eddy MD [address] [place] [phone] PCP - General Family Medicine 02/08/24
--- OUTSIDE RECORDS SUMMARY | 2025-01-09 09:31 | XMS_ITS | Clinical Summary ---
Author Organization [facility] Address [address] [place] [address] Care Team Providers Care Fans Clerk Name Role Phone Mita Eddy Primary Care Provider [phone] Allergies No known active allergies Medications No [...] Vaccines (1 - Tdap) 09/17/2005 COVID-19 Vaccine ( - 2023-2 5 season) 2024 Alcohol/Substance Use Screening 06/04/2024 Depression Screening and Follow-Up 06/04/2024 Social Drivers of Health Prabha ual Screening 06/04/2024 Influenza Vaccine (#1) 2025 RSV Vaccine (60+ years old a nd patients) (1 - 1-dose 75+ series) 09/17/2058 Pneumococcal Vaccine: Pediat koby (0-5 Years) and At-Risk Patients (6-50 Years) Aged Out No longer eligible b ased on patient's age to complete this topic Insurance [place] HS[place] CARE Care Teams Fans Clerk Relationship Specialty Start Date End Date Mita Eddy [address] [place] [phone] PCP - General 05/21/24
== END 2025-01-09 09:26 | disposition home or self-care (01) ==
LOC: HO.MAMMO 09:25
PROVIDERS: PCP General Practice; Visit Provider Internal Medicine
DX: N64.4 Mastodynia (principal); N62 Hypertrophy of breast
CPT/HCPCS: 77062; 77066

== ENCOUNTER → 2025-01-09 09:30 | Outpatient (BNV) | payer OTHER, SELFPAY | PROVIDERS: PCP General Practice; Visit Provider Radiology Body Imaging | DX: N62 Hypertrophy of breast (principal) | CPT/HCPCS: 77062; 77066 ==